=== PATIENT | female | born 1985 | race Caucasian/White ===

== ENCOUNTER 2023-05-26 08:16 | Emergency (ER) | payer MEDICAID, SELFPAY ==
[2023-05-26 08:22] VITALS: BP 121/83; PULSE 105; RESP 22; TEMP 36.3; O2SAT 97; BMI 28.3
[2023-05-26] MEDS: IPRAT-ALBUT 0.5-2.5 MG/3 ML NEB 1 NEB IH (08:25)
--- NOTE | 2023-05-26 08:57 | CRLHL7_ITS ---
For Patients: As a result of the Century Cures Act, medical imaging exams and procedure reports are released immediately into your electronic medical record. You may view this report before your referring provider. If you have questions, please contact your health care provider. INDICATION: Acute asthma attack. Dyspnea COMPARISON: None TECHNIQUE: PA and lateral views of the chest were acquired FINDINGS: TUBES AND LINES: None. HEART AND MEDIASTINUM: The heart size is normal. The mediastinal contour appears normal for patient age. LUNGS AND PLEURAL SPACES: The lungs appear normal.The pleural spaces are unremarkable. OSSEOUS STRUCTURES: Age-appropriate appearance. No acute focal finding. IMPRESSION: No evidence of active pulmonary disease. Dictated by Rick Link MD @ 05/26/2023 9:44:26 AM (Electronically Signed)
--- NOTE | 2023-05-26 08:58 | ED_ITS ---
HPI - General Adult General Chief complaint: Asthma Stated complaint: asthma attack/out of control Time Seen by Provider: 05/26/23 08:43 Source: patient Mode of arrival: ambulatory Limitations: no limitations History of Present Illness HPI narrative: 38-year-old female presenting with an asthma exacerbation. Patient has long history of controlled asthma, has a rescue inhaler and albuterol nebs at home which she takes as needed. She is also on daily Flovent. In last 24 hours she has been taking multiple doses of her medications. She feels short of breath and has a cough. She denies fevers or chills. Appetite has been normal. She has been cleaning a lot around her house recently, she denies any recent travel. She states that she has never had an asthma exacerbation this bad before. Upon arrival to the ER patient had a DuoNeb done immediately and she does feel significantly better. Related Data Home Medications Medication Instructions Recorded Confirmed albuterol 90 mcg/actuation aerosol mcg inhalation 05/26/23 inhaler fluticasone propionate 250 1 inh inhalation BID 05/26/23 05/26/23 mcg/actuation blister powder for inhalation (Flovent Diskus) venlafaxine 75 mg capsule,extended 75 mg PO DAILY 05/26/23 05/26/23 release 24 hr Previous Rx's Medication Instructions Recorded ipratropium 0.5 mg-albuterol 3 mg 3 ml inhalation Q6H PRN #90 mL 05/26/23 (2.5 mg base)/3 mL nebulization soln prednisone 20 mg tablet 20 mg PO DIRECTED 9 days #18 05/26/23 tabs Allergies Allergy/AdvReac Type Severity Reaction Status Date / Time oxycodone Allergy Verified 05/26/23 08:34 Review of Systems Status of ROS: Reports: 10 or more systems reviewed and unremarkable except as noted in History and below PFSH PFS Social History Smoking Status: Never smoker Do you use any of these nicotine containing products: None Second hand tobacco smoke exposure: No How often do you have a drink containing alcohol: never How often do you have six or more drinks on one occasion: Never AUDIT-C Alcohol total score: 0 Non-prescribed substance use: denies use service: No Exam Narrative: Exam Narrative: Well-nourished well-developed patient in no acute distress. Alert and oriented. Answers questions appropriately. Mood and affect are appropriate. Thoughts are goal oriented and rational. No tangential or magical thinking noted. Patient speaks in full sentences without needing to catch her breath. She has acne on the lower face and neck. HEENT: Normocephalic atraumatic. Pupils are equally round reactive to light. Extraocular muscles are intact. Conjunctivae are moist without any icterus noted. Moist mucous membranes. Posterior pharynx is normal. Neck is soft. Cardiovascular: Heart is regular rate and rhythm S1 and S2 are present without any murmurs. Lungs: Diffuse but mild wheezing bilaterally. Extremities: Bilateral lower extremities are without edema. Skin: Well perfused without any obvious rashes. Const: Vital Signs, click to edit/add: Vital Signs - 24 hr 05/26/23 08:22 05/26/23 09:41 Temperature 97.4 F L 98 F Pulse Rate [Pulse Oximeter] 105 H 83 Respiratory Rate 22 18 Blood Pressure [Le ft Upper Arm] 121/83 Blood Pressure [Ri ght Upper Arm] 110/72 Pulse Oximetry 97 97 Oxygen Delivery Me thod Room Air Room Air Course Course Hospital Course: After patient was stabilized with a DuoNeb, she received oral prednisone. Chest x-ray, read by me, does not show any acute infiltrates. Lab work was unremarkable. Triple swab was negative. Vital Signs Vital signs: Initial Vital Signs Temperature 97.4 F L 05/26/23 08:22 Temperature Source Temporal Artery Scan 05/26/23 08:22 Pulse Rate 105 H 05/26/23 08:22 Pulse Rhythm Regular 05/26/23 08:22 Respiratory Rate 22 05/26/23 08:22 Blood Pressure 121/83 05/26/23 08:22 Blood Pressure Mean 95 05/26/23 08:22 Blood Pressure Position Sitting 05/26/23 08:22 Pulse Oximetry 97 05/26/23 08:22 Oxygen Delivery Method Room Air 05/26/23 08:22 Vital Signs Temperature 97.4 F L 05/26/23 08:22 Pulse Rate 105 H 05/26/23 08:22 Respiratory Rate 22 05/26/23 08:22 Blood Pressure 121/83 05/26/23 08:22 Pulse Oximetry 97 05/26/23 08:22 Oxygen Delivery Method Room Air 05/26/23 08:22 Temperature 98 F 05/26/23 09:41 Pulse Rate 83 05/26/23 09:41 Respiratory Rate 18 05/26/23 09:41 Blood Pressure 110/72 05/26/23 09:41 Pulse Oximetry 97 05/26/23 09:41 Oxygen Delivery Method Room Air 05/26/23 09:41 Medical Decision Making MDM Narrative Medical decision making narrative: 38-year-old female with asthma exacerbation. Patient will be sent home with prednisone and DuoNebs. Follow-up as needed. Recommend a re-examination in 1 week with her primary care provider. Lab Data Lab results reviewed: Yes I reviewed the patient's lab results Labs: Lab Results 05/26/23 05/26/23 Range/Units 09:05 09:07 WBC 7.73 (4.50-11.00) K/uL RBC 4.40 (4.00-5.20) m/uL Hgb 12.9 (12.0-16.0) gm/dL Hct 38.9 (33.0-51.0) % MCV 88 (80-100) fL MCH 29 (26-34) pg MCHC 33 (32-36) gm/dL RDW Coeff of Jessa 13.0 (11.5-15.5) % Plt Count 242 (140-440) K/uL Neut % (Auto) 65.2 (42.0-72.0) % Lymph % (Auto) 19.7 L (20-44) % [place] % (Auto) 4.8 (0.0-11.0) % Eos % (Auto) 9.3 H (0.0-7.0) % Baso % (Auto) 0.9 (0.0-3.0) % Neut # (Auto) 5.04 (1.7-7.0) K/uL Lymph # (Auto) 1.50 (0.90-2.90) K/uL [place] # (Auto) 0.40 (0.00-0.90) K/UL Eos # (Auto) 0.70 H (0.00-0.50) K/uL Baso # (Auto) 0.07 (0.00-0.30) K/uL Abs Immat Gran (auto) 0.01 (0.00-0.30) K/uL Imm/Tot Granulo (auto) 0.1 % Sodium 140 (135-149) mmol/L Potassium 3.9 (3.6-5.1) mmol/L Chloride 108 (96-114) mmol/L Carbon Dioxide 23 (20-32) mmol/L BUN 12 (5-24) mg/dL Creatinine 0.7 (0.5-1.5) mg/dL Estimated Creat Clear 91.02 Estimated GFR 114 ml/min Glucose 103 (60-115) mg/dL Calcium 8.8 (8.4-10.6) mg/dL C-Reactive Protein < 0.5 L (0.5-1.0) mg/dL SARS-CoV-2 (PCR) Negative SARS-CoV-2 (Negative) Influenza Type A (PCR) Negative PCR FLU A (Negative) Influenza Type B (PCR) Negative PCR FLU B (Negative) RSV (PCR) Negative PCR RSV (Negative) Imaging Data Chest x-ray: Attestation: I have reviewed the pertinent imaging results. Radiologist's impression: PA and lateral views of the chest were acquired FINDINGS: TUBES AND LINES: None. HEART AND MEDIASTINUM: The heart size is normal. The mediastinal contour appears normal for patient age. LUNGS AND PLEURAL SPACES: The lungs appear normal.The pleural spaces are unremarkable. OSSEOUS STRUCTURES: Age-appropriate appearance. No acute focal finding. IMPRESSION: No evidence of active pulmonary disease. Discharge Plan Discharge Clinical Impression: Asthma with acute exacerbation Patient Disposition: Home, Self-Care Condition: Improved Additional Instructions: Take all steroid as prescribed. Okay to use DuoNebs up to 4 times a day as needed. Follow-up with your primary care provider in about 1 week for a recheck. Return to the ER if symptoms worsen. Prescriptions: New prednisone 20 mg tablet 20 mg PO DIRECTED 9 Days Qty: 18 0RF Rx Instructions: 60 mg p.o. daily for 3 days (3 tablets daily on day 1-3), 40 mg daily for 3 days (2 tablets daily on days 4-6), 20 mg daily for 3 days (1 tablet daily on days 7-9). ipratropium-albuterol 0.5 mg-3 mg(2.5 mg base)/3 mL solution for nebulization 3 ml inhalation Q6H PRNQty: 90 0RF No Action albuterol 90 mcg/actuation aerosol inhalation Flovent Diskus 250 mcg/actuation blister with device 1 inh inhalation BID venlafaxine 75 mg capsule,extended release 24hr 75 mg PO DAILY Stand Alone Forms: [employer] Info Instructions
[2023-05-26] MEDS: predniSONE 10 MG TABLET 50 MG PO (09:07)
[2023-05-26 09:12] LABS: Basophils Absolute Auto 0.07 K/uL (0.00-0.30); Basophils Percent Auto 0.9 % (0.0-3.0); Eosinophils Percent Auto 9.3 % (0.0-7.0); Hematocrit 38.9 % (33.0-51.0); Hemoglobin* 12.9 gm/dL (12.0-16.0); Immature Granulocytes Abs Auto 0.01 K/uL (0.00-0.30); Immature Granulocytes Pct Auto 0.1 %; Lymphocytes Percent Auto 19.7 % (20-44); Mean Corpuscular HGB Conc 33 gm/dL (32-36); Mean Corpuscular Hemoglobin 29 pg (26-34); Mean Corpuscular Volume 88 fL (80-100); Monocytes Percent Auto 4.8 % (0.0-11.0); Neutrophils Absolute Auto 5.04 K/uL (1.7-7.0); Neutrophils Percent Auto 65.2 % (42.0-72.0); Platelet Count* 242 K/uL (140-440); White Blood Count* 7.73 K/uL (4.50-11.00)
[2023-05-26 09:16] LABS: Slide Review Reflex No
[2023-05-26 09:24] LABS: Chloride* 108 mmol/L (96-114)
[2023-05-26 09:25] LABS: Potassium* 3.9 mmol/L (3.6-5.1); Sodium* 140 mmol/L (135-149)
[2023-05-26 09:27] LABS: Creatinine* 0.7 mg/dL (0.5-1.5); Est. Creatinine Clearance* 91.02; Estimated Glomerular Filt Rate 114 ml/min
[2023-05-26 09:28] LABS: Blood Urea Nitrogen* 12 mg/dL (5-24); Calcium* 8.8 mg/dL (8.4-10.6); Carbon Dioxide* 23 mmol/L (20-32); Glucose* 103 mg/dL (60-115)
[2023-05-26 09:32] LABS: C Reactive Protein* < 0.5 mg/dL (0.5-1.0)
[2023-05-26 09:41] VITALS: BP 110/72; PULSE 83; RESP 18; TEMP 36.6; O2SAT 97
[2023-05-26 09:50] LABS: PCR FLU A Negative PCR FLU A (Negative); PCR FLU B Negative PCR FLU B (Negative); PCR RSV Negative PCR RSV (Negative)
[2023-05-26 10:07] LABS: SARS PCR* Negative SARS-CoV-2 (Negative)
== END 2023-05-26 10:31 | disposition home or self-care (01) ==
PROVIDERS: Emergency Provider Family Medicine
DX: J45.901 Unspecified asthma with (acute) exacerbation (principal)
CPT/HCPCS: 36415; 71046; 80048; 85025; 86140; 87631; 94640; 99284; J7512

== ENCOUNTER 2023-08-03 19:37 | Emergency (ER) | payer MEDICAID, SELFPAY ==
[2023-08-03 19:42] VITALS: BP 130/82; PULSE 100; RESP 24; TEMP 36.5; O2SAT 92
--- NOTE | 2023-08-03 19:48 | ED.SOB ---
HPI - SOB/Dyspnea General Time Seen by Provider: 19:48 Date Seen: 08/03/23 Chief Complaint: Shortness of Breath/Dyspnea Stated Complaint: asthma Time Seen by Provider: 08/03/23 19:42 Source: patient, RN notes reviewed and old records reviewed Mode of arrival: ambulatory Limitations: no limitations History of Present Illness HPI Narrative: This 38-year-old female with underlying asthma is coming in with asthma exacerbation. She was cleaning her house. She had an exacerbation over the summer with similar circumstances, she was using cleaning products than. Her daughter's use similar cleaning products near bathroom by her today. She has had a history of dust bothering her but has never been this bad. She has not seen an machine stone polisher her asthma specialist and quite some time. She has used about 4 DuoNebs today, has tried her rescue inhaler multiple times. She feels chest tightness, is coughing. She is still on her Flovent. She has not been sick with anything, no underlying cough or cold symptoms, no sore throat, no nasal drainage. Coughing did not start until she was cleaning. Certainly no fevers. MD elicited complaint: shortness of breath, cough and asthma attack Related Data Home Medications Medication Instructions Recorded Confirmed albuterol 90 mcg/actuation aerosol mcg inhalation 05/26/23 inhaler fluticasone propionate 250 1 inh inhalation BID 05/26/23 05/26/23 mcg/actuation blister powder for inhalation (Flovent Diskus) venlafaxine 75 mg capsule,extended 75 mg PO DAILY 05/26/23 05/26/23 release 24 hr Previous Rx's Medication Instructions Recorded ipratropium 0.5 mg-albuterol 3 mg 3 ml inhalation Q6H PRN #90 mL 05/26/23 (2.5 mg base)/3 mL nebulization soln prednisone 20 mg tablet 20 mg PO DIRECTED 9 days #18 05/26/23 tabs Allergies Allergy/AdvReac Type Severity Reaction Status Date / Time oxycodone Allergy Verified 05/26/23 08:34 Review of Systems Status of ROS: Reports: 6 or more systems reviewed and unremarkable except as noted in History and below PFSH PFSH Social History Smoking Status: Never smoker Do you use any of these nicotine containing products: None Second hand tobacco smoke exposure: No How often do you have a drink containing alcohol: never How often do you have six or more drinks on one occasion: Never AUDIT-C Alcohol total score: 0 Non-prescribed substance use: denies use service: No Exam Const: Vital Signs, click to edit/add: Vital Signs - 24 hr 08/03/23 19:42 08/03/23 20:28 Temperature 97.7 F Pulse Rate [Left P ulse Oximeter] 100 98 Respiratory Rate 24 20 Blood Pressure [Ri ght Upper Arm] 130/82 117/78 Pulse Oximetry 92 97 Oxygen Delivery Me thod Room Air Room Air 38-year-old female is alert, interactive, no apparent distress but does look mildly anxious. Pupils equal round reactive, sclera clear. Able to speak in complete sentences but does have dry little cough that is happening few times during our interaction. Neck is supple, no cervical adenopathy, no thyromegaly masses or nodules. Lungs with distant breath sounds, she is somewhat splinting and not wanting to take a deep breath. She does have prolonged expiratory phase an overall diminished lung sounds. Did hear occasional end-expiratory wheeze. CV regular rate and rhythm, no murmur, normal S1 and S2. Documenting provider has reviewed patient's vital signs: yes Course Course ED Course: We will get this patient 40 mg oral prednisone. Will have her do a albuterol nebulization at this time. Monitor on pulse oximetry. Do not feel that chest x-ray or laboratory evaluation is indicated. This sounds like it is in exacerbate aunt to cleaning product or something while she was cleaning today. Have already reviewed with her that I do think she should be referred to an asthma machine stone polisher specialist again for her asthma. Reevaluation(s) Time of Reevaluation #1: 20:38 Reevaluation #1: Patient is feeling better, oxygen saturations 98-100% now, air moving much better in lungs, significantly improved air exchange. She doesn't have any albuterol nebs at home. Reviewed that it will take about 4-6 hours for the prednisone to start working. Will get albuterol nebs and prednisone for her from [facility]. Vital Signs Vital signs: Initial Vital Signs Temperature 97.7 F 08/03/23 19:42 Temperature Source Temporal Artery Scan 08/03/23 19:42 Pulse Rate 100 10/08/23 19:42 Pulse Rhythm Regular 08/03/23 19:42 Respiratory Rate 24 08/03/23 19:42 Blood Pressure 130/82 08/03/23 19:42 Blood Pressure Mean 98 08/03/23 19:42 Blood Pressure Position Sitting 08/03/23 19:42 Pulse Oximetry 92 08/03/23 19:42 Oxygen Delivery Method Room Air 08/03/23 19:42 Vital Signs Temperature 97.7 F 08/03/23 19:42 Pulse Rate 100 08/03/23 19:42 Respiratory Rate 24 08/03/23 19:42 Blood Pressure 130/82 08/03/23 19:42 Pulse Oximetry 92 08/03/23 19:42 Oxygen Delivery Method Room Air 08/03/23 19:42 Temperature 97.7 F 08/03/23 19:42 Pulse Rate 98 08/03/23 20:28 Respiratory Rate 20 08/03/23 20:28 Blood Pressure 117/78 08/03/23 20:28 Pulse Oximetry 97 08/03/23 20:28 Oxygen Delivery Method Room Air 08/03/23 20:28 Critical Care Time Critical Care Time Critical Care Time: No Discharge Plan Discharge Clinical Impression: Asthma with acute exacerbation Patient Disposition: Home, Self-Care Condition: Stable Instructions: Asthma (ED) Additional Instructions: Use albuterol nebs every 4 hours as needed, duonebs are to be only up to 4x/day. Take prednisone as prescribed, next dose due tomorrow morning, recommend taking this with food. If you are worsening despite these measures, have further concerns with your breathing, please seek re-evaluation. Consider talking to your primary provider about referral to asthma/hearing aid specialist. Activity Level: Activity as Tolerated Prescriptions: No Action albuterol 90 mcg/actuation aerosol inhalation Flovent Diskus 250 mcg/actuation blister with device 1 inh inhalation BID venlafaxine 75 mg capsule,extended release 24hr 75 mg PO DAILY prednisone 20 mg tablet 20 mg PO DIRECTED 9 Days Qty: 18 0RF Rx Instructions: 60 mg p.o. daily for 3 days (3 tablets daily on day 1-3), 40 mg daily for 3 days (2 tablets daily on days 4-6), 20 mg daily for 3 days (1 tablet daily on days 7-9). ipratropium-albuterol 0.5 mg-3 mg(2.5 mg base)/3 mL solution for nebulization 3 ml inhalation Q6H PRNQty: 90 0RF Follow Up/Referrals: Provider,Not a Local [Referring] - Stand Alone Forms: [employer] Info Instructions
[2023-08-03] MEDS: predniSONE 20 MG TABLET 40 MG PO (19:58)
[2023-08-03] MEDS: ALBUTEROL SULFATE 2.5 MG/3 ML VIAL.NEB NEB (19:58)
[2023-08-03 20:28] VITALS: BP 117/78; PULSE 98; RESP 20; O2SAT 97
--- NOTE | 2023-08-03 20:55 | PC.NURSE ---
patient DC with spouse, RR even and unlabored. no further questions about DC instructions
== END 2023-08-03 20:55 | disposition home or self-care (01) ==
PROVIDERS: Emergency Provider Family Medicine; PCP Family Medicine
DX: J45.901 Unspecified asthma with (acute) exacerbation (principal)
CPT/HCPCS: 94640; 99283; 99284; J7512

== ENCOUNTER 2025-10-08 20:13 | Emergency (ER) | payer MEDICAID, SELFPAY ==
--- OUTSIDE RECORDS SUMMARY | 2025-10-08 20:15 | XMS_ITS | Clinical Summary ---
Author Organization [facility] Address [address] [facility] [place] [address] Care Team Providers Care Utility Engineer Name Role Phone Wicho Deluna PA-C Primary Care Provider [phone] Source Comments You are receiving this document as you are listed as the primary care provider,follow-up provider, or the patient has been referred to you for consultation.This is in compliance with the Medicare andMedicaid EHR Incentive Program,which states Providers who transition their patient to another setting of careor provider of care or refers their patient to another provider of care shouldprovide summary care record for each transition of care or referral. [employer] Allergies Active AllergyReactionsCriticalityNoted CdaxZttpwxorGwtssktskHjqtQqn31/28/2017 Medications MedicationSigDispense QuantityRefillsLast FilledStart DateEnd DateStatus FLUoxetine (PROZAC) 40 MG capsule Take 1 Cap by mouth daily. 90 Cap Active ibuprofen (MOTRIN) 800 MG tablet Take 1 Tab by mouth every 6 hours as needed for Pain. Taking OTC every 6 hours 05/08/2018Active HYDROcodone-acetaminophen (NORCO) 5-325 MG tablet Indications:Piriformis syndrome of right sideTake 1-2 Tabs by mouth every 4 hours as needed for Pain. 10 Tab 05/08/2018Active Additional Information Patient not taking.Reported on 05/11/2018 predniSONE (DELTASONE) 20 MG tablet Indications:Piriformis syndrome of right sideTake one tablet orally twice a day for the next 5 days. 10 Tablet 05/13/2018Active Additional Information Patient not taking.Reported on 01/05/2024 diclofenac (VOLTAREN) 1 % gel Indications:SI (sacroiliac) joint dysfunction (HRC),Greater trochanteric bursitis of right hipAPPLY TOPICALLY TO RIGHT LATERAL HIP 2 TIMES PER DAY. 100 g Active buPROPion (WELLBUTRIN XL) 300 MG 24 hour release tablet Take 1 Tablet (300 mg) by mouth.01/01/2024ctive buPROPion (WELLBUTRIN XL) 150 MG 24 hour release tablet Take 1 Tablet (150 mg) by mouth every morning.12/11/2023ctive ARNUITY ELLIPTA 200 MCG/ACT inhaler Inhale 1 Puff daily.Active Phentermine HCl 37.5 MG capsule Take 1 Capsule (37.5 mg) by mouth.12/11/2023ctive Active Problems ProblemNoted DateDiagnosed DateModerate persistent pguqkp5801/05/2024nxiety and vcrowldulj86/13/3013Xedzrtzyyujrood82/12/8740Pketoif12/03/2011 Social History Tobacco UseTypesPacks/DayYears UsedDateSmoking Tobacco: NeverSmokeless Tobacco: NeverAlcohol UseStandard Drinks/WeekCommentsYes0 (1 standard drink = 0.6 oz pure alcohol)occasionalCommentsNoSex and Gender InformationValueDate Recorded Sex Assigned at BirthNot on fileLegal FcpSepfze50/10/2012 4:46 AM CDTGender IdentityNot on fileSexual OrientationNot on file Last Filed Vital Signs Vital SignReadingTime TakenCommentsBlood Syorzzgs776/6403 9:42 AM CDT Khzlw726401/05/2024 9:42 AM PQYVrfslvezguf83.4 ??C (99.3 ??F)01/05/2024 9:42 AM CDTRespiratory Apup917801/05/2024 9:42 AM CDTOxygen Knzdacrewe78%01/05/2024 9:42 AM CDTInhaled Oxygen Concentration--Zbkyea12.7 kg (158 lb)05/08/2018 12:20 PM TGNLbvjlx171.3 cm (5' 3.5)05/08/2018 12:20 PM CDTBody Mass Index27.55005/08/2018 12:20 PM CDT Plan of Treatment Health MaintenanceDue DateLast DoneCommentsCervical Cancer Screening Due 1986Hep C Screening (Preventive Services)1986Asthma ACT (score of 20 or higher)1990HIV Screening (Preventive Services)2002Adult Preventive Visit2004HepB Vaccine (1)2005Pneumococcal Vaccine (1 of 2 - PCV)2005COVID-19 Vaccine (1 - season)2025Influenza Vaccine (#1), 07/12/2016, 07/03/2012, Additional history exists DTaP/Tdap/Td Vaccine (10 - Tdap), 10/30/2016, 01/11/2015, Additional history existsZoster/Shingles Vaccine (1 of 2)2036IPV (Polio) TxlqxbsYuchgfxro42/11/1991, 10/31/1987, 1986, Additional history exists MCV4 BrqdaknLxdbqhtgh36/19/2005, 05/14/2005HPV Vaccine (No Doses Required) CompletedHepA VaccineAged OutNo longer eligible based on patient's age to complete this topicHib VaccineAged OutNo longer eligible based on patient's age to complete this topicMeningococcal B VaccineAged OutNo longer eligible based on patient's age to complete this topic Insurance * Guarantor: Jaelyn Cam TypeRelation to PatientDate of BirthPhone Billing AddressPersonal/YftqxtLhgu1985 [address] [place] [address] * Guarantor: Gary Barajas TypeRelation to PatientDate of BirthPhone Billing AddressPersonal/GayvaaMrtit32/01/1958 [address] [address] Care Teams Team MemberRelationshipSpecialtyStart DateEnd Date Wicho Deluna PA-C [address] [address] PCP - GeneralPhysician Assistant05/13/18
--- OUTSIDE RECORDS SUMMARY | 2025-10-08 20:16 | XMS_ITS | Encounter Summary ---
Author Organization [facility] Address [address] [place] [address]. [place] [address] Care Team Providers Care Can Top Setter Name Role Phone Eliazar Newman MD Unavailable Ira Loza PA-C Unavailable Slime Hernandez MD Unavailable Chandu Dean MD Unavailable Eliazar Newman MD Primary Care Provider Joann Seaman APRN KITCHEN STEWARD/STEWARDESS Unavailable Un available Chandu Dean MD Unavailable Chandu Dean MD Unavailable Encounter Details DateTypeDepartmentCare Team (Latest Contact Info)Jyjymraxbhg65/02/2025[facility] [place] Advice [facility] [place] [address] [facility] [address] [place] [address] Chandu Dean MD [address] [facility] [address] [place] [address] Moderate persistent asthma with acute exacerbation (Primary Dx) Social History Tobacco UseTypesPacks/DayYears UsedDateSmoking Tobacco: NeverPassive Smoke Exposure: NeverSmokeless Tobacco: NeverAlcohol UseStandard Drinks/WeekComments Yes0 (1 standard drink = 0.6 oz pure alcohol)PHQ-2AnswerDate RecordedPHQ-2 Score Edinburgh Depression ScaleAnswerDate RecordedEdinburgh Depression Scale Auxjp826Last EPDS Self Harm ResultNot on file 08/12/2019Adolescent EducationAnswerDate RecordedGetting School Help NeededNot on file07/18/2023Food InsecurityAnswerDate RecordedWithin the past 12 months, did you worry that your food would run out before you got money to buy more?No 11/03/2023Within the past 12 months, did the food you bought just not last and you didn???t have money to getmore?No11/03/2023Housing StabilityAnswerDate RecordedDo you have housing? (Housing is defined as stable permanent housing and does not include staying outside in a car, in a tent, in an abandoned building, in an overnight halfway, or couch-surfing.)Yes11/03/2023re you worried about losing your housing?Yes11/03/2023Financial Resource StrainAnswerDate Recorded Within the past 12 months, have you or your family members you live with been unable to get utilities (heat, electricity) when it was really needed?No 11/03/2023Transportation NeedsAnswerDate RecordedWithin the past 12 months, has lack of transportation kept you from medical appointments, getting your medicines, non-medical meetings or appointments, work, or from getting things that you need?No11/03/2023Interpersonal SafetyAnswerDate RecordedDo you feel physically and emotionally safe where you currently live?Yes11/04/2023Within the past 12 months, have you been hit, slapped, kicked or otherwise physically hurt by someone?No11/04/2023Within the past 12 months, have you been humiliated or emotionally abused in other ways by your partner or ex-partner?No11/04/2023 CommentsNoSex and Gender InformationValueDate RecordedSex Assigned at UmgtuAivqfp86/15/2021 9:50 AM CDTLegal EhcUonpyv31/04/2012 3:42 AM CSTGender YjbqfebnNoekvs34/15/2021 9:50 AM CDTSexual ApycpioqlpcNbomxkqs47/15/2021 9:51 AM CDTOccupationIndustryJob Start DateJob End Datecrossat[facility] coachNot on fileNot on fileNot on filedocumented as of this encounter Plan of Treatment Not on file documented as of this encounter Visit Diagnoses Diagnosis Moderate persistent asthma with acute exacerbation- Primary documented in this encounter Additional Health Concerns AssessmentNoted TimePHQ-9 Depression Total Score: 10:25 AM CDT documented as of this encounter Care Teams Team MemberRelationshipSpecialtyStart [place] [address] [place] [address] PCP - GeneralFamily Medicine12/11/23 [place] [address] [place] [address] Assigned PCP01/15/21 Ira Loza PA-C [address] [place] [address] Referring PhysicianFamily Jlwpxzqr31/14/21 Slime Hernandez MD [address] [facility] [address] [place] [address] Endocrinology, Diabetes, and Yhfxphlzol44/14/21 Chandu Dean MD [address] [facility] [address] [place], [place] [id number] MDAllergy & Immunology11/24/23 Joann Seaman APRN KITCHEN STEWARD/STEWARDESS Referring PhysicianFamily Medicine03/11/24 Chandu Dean MD [address] [place] [id number] Assigned Allergy Provider01/16/25 Chandu Dean MD [address] [place] [id number] MDAllergy & Rpemjcnliy68/8/25documented as of this encounter
--- OUTSIDE RECORDS SUMMARY | 2025-10-08 20:16 | XMS_ITS | Encounter Summary ---
Author Organization [facility] Address [address] [place] [address]. [place] [address] Care Team Providers Care Acidity Tester Name Role Phone Eliazar Newman MD Unavailable Ira Loza PA-C Unavailable Slime Hernandez MD Unavailable Chandu Dean MD Unavailable Eliazar Newman MD Primary Care Provider Joann Seaman APRN SNIPPER Unavailable Un available Chandu Dean MD Unavailable Chandu Dean MD Unavailable Encounter Details DateTypeDepartmentCare Team (Latest Contact Info)Ebvtxhhfkkv09/06/2025[facility] [place] Medical Advice [facility] [address] [place] [address] Venessa Grimes, RN Social History Tobacco UseTypesPacks/DayYears UsedDateSmoking Tobacco: NeverPassive Smoke Exposure: NeverSmokeless Tobacco: NeverAlcohol UseStandard Drinks/WeekComments Yes0 (1 standard drink = 0.6 oz pure alcohol)PHQ-2AnswerDate RecordedPHQ-2 Score Edinburgh Depression ScaleAnswerDate RecordedEdinburgh Depression Scale Rdubm946Last EPDS Self Harm ResultNot on file 08/12/2019Adolescent [...] in an abandoned building, in an overnight care home, or couch-surfing.)Yes11/03/2023re you worried about losing your [...] CommentsNoSex and Gender InformationValueDate RecordedSex Assigned at UrtfjWbenwj88/15/2021 9:50 AM CDTLegal LokNxyjne79/04/2012 3:42 AM CSTGender BumuijleYchsuq98/15/2021 9:50 AM CDTSexual ZunuwobdauvAcufccuy24/15/2021 9:51 AM 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 on fileNot on fileNot on filedocumented as of this encounter Plan of Treatment Not on file documented as of this encounter Visit Diagnoses Not on filedocumented in this encounter Additional Health Concerns AssessmentNoted TimePHQ-9 Depression Total Score: 10:25 AM CDT documented as of this encounter Care Teams Team MemberRelationshipSpecialtyStart [place] [address] [place] [address] PCP - Generalmily Medicine12/11/23 [place] [address] [place] [address] Assigned PCP01/15/21 Ira Loza PA-C [address] [place] [address] Referring PhysicianFamily Eyctpmgz08/14/21 Slime Hernandez MD [address] [place], [place] [address] MDEndocrinology, Diabetes, and Oyuwvzodmt55/14/21 Chandu Dean MD [address] [place] [address] MDAllergy & Immunology11/24/23 Joann Seaman APRN SNIPPER Referring PhysicianFamily Medicine03/11/24 Chandu Dean MD [address] [place] [id number] Assigned Allergy Provider01/16/25 Chandu Dean MD [address] [facility] [address] [place], [place] [address] MDAllergy & Wncnfmcdqz69/8/25documented as of this encounter
--- OUTSIDE RECORDS SUMMARY | 2025-10-08 20:16 | XMS_ITS | Encounter Summary ---
Author Organization [facility] Address [address] [place] [address]. [place] [address] Care Team Providers Care Director Network Development Name Role Phone Eliazar Newman MD Unavailable Ira Loza PA-C Unavailable Slime Hernandez MD Unavailable Chandu Dean MD Unavailable Eliazar Newman MD Primary Care Provider Joann Seaman APRN FORECAST ANALYST Unavailable Un available Chandu Dean MD Unavailable Chandu Dean MD Unavailable Encounter Details DateTypeDepartmentCare Team (Latest Contact Info)Gizrfbtsbkv36/05/2025[facility] [place] Medical Advice [facility] [place] [id number] [facility] [address]th [place] [address] Ofelia Gale Social History Tobacco UseTypesPacks/DayYears UsedDateSmoking Tobacco: NeverPassive Smoke Exposure: NeverSmokeless Tobacco: NeverAlcohol UseStandard Drinks/WeekComments Yes0 (1 standard drink = 0.6 oz pure alcohol)PHQ-2AnswerDate RecordedPHQ-2 Score 009/03/2025Edinburgh Depression ScaleAnswerDate RecordedEdinburgh Depression Scale Rrtrv543Last EPDS Self Harm ResultNot on file 08/12/2019Adolescent [...] in an abandoned building, in an overnight jail, or couch-surfing.)Yes11/03/2023re you worried about losing your [...] CommentsNoSex and Gender InformationValueDate RecordedSex Assigned at LjgcbSzodpz57/15/2021 9:50 AM CDTLegal MifVuzsfp16/04/2012 3:42 AM CSTGender ConxjzwrPilcjx71/15/2021 9:50 AM CDTSexual VubmyfwknvuAxtxtbzn87/15/2021 9:51 AM 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 on fileNot on fileNot on filedocumented as of this encounter Plan of Treatment Not on file documented as of this encounter Visit Diagnoses Not on filedocumented in this encounter Additional Health Concerns AssessmentNoted TimePHQ-9 Depression Total Score: 509 10:25 AM CDT documented as of this encounter Care Teams Team MemberRelationshipSpecialtyStart [place] [address] [place] [address] [facility]12/11/23 [place] [address] [place] [address] Assigned PCP01/15/21 Ira Loza PA-C [address] [place] [address] Referring PhysicianDecatur County Hospitally Bjpgbcuy52/14/21 Slime Hernandez MD [address] [place], [place] [address] MDEndocrinology, Diabetes, and Fmkhqszfwh28/14/21 Chandu Dean MD [address] [place], [place] [address] MDAllergy & Immunology11/24/23 Joann Seaman APRN FORECAST ANALYST Referring PhysicianFamily Medicine03/11/24 Chandu Dean MD [address] [place], [place] [address] Assigned Allergy Provider01/16/25 Chandu Dean MD [address] [facility] [address] [place], [place] [address] MDAllergy & Ektxjfknht58/8/25documented as of this encounter
--- OUTSIDE RECORDS SUMMARY | 2025-10-08 20:16 | XMS_ITS | Clinical Summary ---
Author Organization [facility] Address [address] [place] [address] Care Team Providers Care Senior Sales Manager Name Role Phone Eliazar Newman MD Unavailable Ira Loza PA-C Unavailable Slime Hernandez MD Unavailable Chandu Dean MD Unavailable Eliazar Newman MD Primary Care Provider Joann Seaman APRN WIND PROJECTS SUPERVISOR Unavailable Un available Chandu Dean MD Unavailable Chandu Dean MD Unavailable Allergies Active AllergyReactionsCriticalityNoted SuqqIduczgbxDpbhcfqtlMttmSkm59/28/2017 Medications MedicationSigDispense QuantityRefillsLast FilledStart DateEnd DateStatus Cetirizine HCl (ZYRTEC ALLERGY PO) Active ipratropium - albuterol 0.5 mg/2.5 mg/3 mL (DUONEB) 0.5-2.5 (3) MG/3ML neb solution Indications:Moderate persistent asthma with acute exacerbationTAKE 1 VIAL BY NEBULIZATION EVERY 6 HOURS NEEDED FOR SHORTNESS OF BREATH, WHEEZING OR COUGH 90 mL 4Active albuterol (VENTOLIN HFA) 108 (90 Base) MCG/ACT inhaler Indications:Mild persistent asthma without complicationINHALE 1-2 PUFFS INTO THE LUNGS EVERY 6 HOURS NEEDED FOR SHORTNESS OF BREATH OR WHEEZING 18 g 1105Active buPROPion (WELLBUTRIN XL) 300 MG 24 hr tablet Indications:Other fatigueTake 1 tablet (300 mg) by mouth every morning. 90 tablet 3095Active albuterol (PROVENTIL) (2.5 MG/3ML) 0.083% neb solution Indications:Mild intermittent asthma without complicationTake 1 vial (2.5 mg) by nebulization every 6 hours as needed for shortness of breath, wheezing or cough. 90 mL 11095Active fluticasone-vilanterol (BREO ELLIPTA) 200-25 MCG/ACT inhaler Indications:Moderate persistent asthma with acute exacerbationInhale 1 puff into the lungs daily. 1 each 1115Active Active Problems ProblemNoted DateDiagnosed DateVaginal /27/2017Nephrolithiasis 04/07/20129270Ylleywh62/03/2011CARDIOVASCULAR SCREENING; LDL GOAL LESS THAN 160 08/26/2010Moderate persistent asthma Resolved Problems ProblemNoted DateDiagnosed DateResolved DateIndication for care in labor or bcshemyf36Encounter for triage in qsrrvrg0408/03/2019 08/13/2019Preterm laborSupervision of other normal , bylxddssws79Hip pain, right Supervision of low-risk fydaunqzj54Indication for care in labor or dbmxvjhr91Encounter for supervision of normal kqirpiwzh07Encounter for supervision of other normal Streptococcus B carrier state complicating Active laborVaginal tnqikdas64/13/2015 12/14/2015Preterm aiedjauuuvls67/Low-lying zymmlfaj02/05/2014 10/31/2014History of macrosomia in infant in prior , currently Encounter for supervision of other normal Overview (08/28/2015): Diagnosis updated by automated process. Provider to review and confirm. Active laborLabor and delivery, indication for care reech diqarwhensux89/24/Pyelonephritis Vaginal cyst04/17/Urethra, diverticulum 04/15/Right flank pain Overview (04/22/2012): R ureteral stent History of depression, currently eqdoqbbp77History of macrosomia in infant in prior , currently /27/2012 09/25/2012Encounter for supervision of other normal zytitztlu28/27/2012 09/25/2012 Overview (08/28/2015): Diagnosis updated by automated process. Provider to review and confirm. Rrjmttawpdx76Streptococcus infection in conditions classified elsewhere and of unspecified site, group B1 Overview (08/07/2010): vaginal Placenta hudmdf81 Overview (04/20/2010): Low-lying Anorvcwh33 Overview (07/28/2015): Problem list name updated by automated process. Provider to review Supervision of normal first yhxdpbydl49Dysmenorrhea01/05/2007 02/12/2010Excessive or frequent exidongkqvxw45 Encounters DateTypeDepartmentCare WeuzDaownichnkq53/06/2025[facility] Medical Advice [place] [address] [place] [phone] Venessa Grimes RN 08/31/2025[facility] Medical Advice [facility] [address] 4[address] [place] [phone] [facility] 08/29/2025Telephone [place] [address] [place] [phone] Chandu Dean MD Prior Auth - Medication (fluticasone-vilanterol (BREO ELLIPTA) 200-25 MCG/ACT inhaler- APPROVED)08/28/2025[facility] Medical Advice [place] [address] [place] [phone] Chandu Dean MD Moderate persistent asthma with acute exacerbation (Primary Dx)08/05/2025 7:00 AM CDTOffice Visit [place] [address] [address] [place] [phone] Chandu Dean MD Seasonal allergic rhinitis due to pollen (Primary Dx); Moderate persistent asthma without complication; Moderate persistent asthma with acute blldginuazdl30/09/5792Hqykce08/06/2025 Refill [place] [address] [address] [phone] Chandu Dean MD Refill Request (fluticasone-vilanterol (BREO ELLIPTA) 200-25 MCG/ACT inhaler) from Last 3 Months Immunizations ImmunizationAdministration DatesNext ErbMyuK9105/11/2002,12/01/2001,05/19/2001 Historical DTP/aP06/28/1996,04/06/1991,10/31/1987,1986,1986Influenza (IIV3) PF07/03/2012,07/23/2010,09/04/1999Influenza (prior to 2023)07/23/2010 Influenza Vaccine >6 months,quad, PF07/13/2019,07/12/2016MMR (MMRII)04/03/1999, 09/05/1987Mantoux Tuberculin Skin Test04/23/2011,04/18/2010Meningococcal ACWY (Menactra??)05/14/2005OPV, trivalent, live04/06/1991,10/31/1987,1986, 1986TD,PF 7+ (Tenivac)04/03/1999TDAP (Adacel,Boostrix)06/01/2019TDAP Vaccine (Adacel)06/01/2019,10/30/2016,01/11/2015,11/05/2010Varicella (Varivax) 09/21/1992 Family History Medical HistoryRelationCommentsDiabetesBrother 3type 1Heart DiseaseMaternal GrandfatherThyroid DiseaseMaternal GrandfatherGynecologyMotherendometriosis Thyroid DiseaseMotherBreast CancerPaternal GrandmotherDiabetesSister 3type 1 RelationStatusCommentsBrother 1AliveBrother 2AliveBrother 3DaughterAliveFather AliveMaternal GrandfatherAliveMaternal GrandmotherAliveMotherAlivePaternal GrandfatherAlivePaternal GrandmotherAliveSister 1AliveSister 2AliveSister 3 Social History Tobacco UseTypesPacks/DayYears UsedDateSmoking Tobacco: NeverPassive Smoke Exposure: NeverSmokeless Tobacco: Never Tobacco Cessation:Counseling Given: Not Answered Alcohol UseStandard Drinks/WeekCommentsYes0 (1 standard drink = 0.6 oz pure alcohol)PHQ-2AnswerDate RecordedPHQ-2 Btvfm205Edinburgh Depression ScaleAnswerDate RecordedEdinburgh Depression Scale Total4 08/12/2019Last EPDS Self Harm ResultNot on file08/12/2019Adolescent Education AnswerDate RecordedGetting School Help NeededNot on file07/18/2023Food InsecurityAnswerDate RecordedWithin the past 12 months, did you worry that your food would run out before you got money to buy more?No11/03/2023Within the past 12 months, did the food you bought just not last and you didn???t have money to getmore?No11/03/2023Housing StabilityAnswerDate RecordedDo you have housing? (Housing is defined as stable permanent housing and does not include staying ou tside in a car, in a tent, in an abandoned building, in an overnight senior care, or couch-surfing.)Yes11/03/2023re you worried about losing your housing?Yes 11/03/2023Financial Resource StrainAnswerDate RecordedWithin the past 12 months, have you or your family members you live with been unable to get utilities (heat, electricity) when it was really needed?No11/03/2023Transportation Needs AnswerDate RecordedWithin the past 12 months, has lack of transportation kept you from medical appointments, getting your medicines, non-medical meetings or appointments, work, or from getting things that you need?No11/03/2023 Interpersonal SafetyAnswerDate RecordedDo you feel physically and emotionally safe where you currently live?Yes11/04/2023Within the past 12 months, have you been hit, slapped, kicked or otherwise physically hurt by someone?No11/04/2023 Within the past 12 months, have you been humiliated or emotionally abused in other ways by your partner or ex-partner?No11/04/2023CommentsNoSex and Gender InformationValueDate RecordedSex Assigned at IypmzQlqxxf84/15/2021 9:50 AM CDTLegal CakWcuiqb99/04/2012 3:42 AM CSTGender BsazwojkQlbbhr14/15/2021 9:50 AM CDTSexual BvygdksnqgyIvvrapsi91/15/2021 9:51 AM 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 on fileNot on fileNot on file Last Filed Vital Signs Vital SignReadingTime TakenCommentsBlood Waayshvi190/7210/07/2025 6:57 AM CDT Uygtw9224 6:57 AM BLZDqeqvsufphx50.5 ??C (97.7 ??F)05/21/2025 9:31 AM CDTRespiratory Icjk197205/21/2025 9:31 AM CDTOxygen Cufnwtwbno60%08/05/2025 6:57 AM CDTInhaled Oxygen Concentration--Ohdugi03.3 kg (183 lb 9.6 oz)08/05/2025 6:57 AM TMBGxohpb648 cm (5' 3)12/11/2023 10:12 AM CSTBody Mass Index32.52012/11/2023 10:12 AM BUTTON SE[employer]ER [employer] Plan of Treatment Health MaintenanceDue DateLast DoneCommentsPNEUMOCOCCAL VACCINE: PEDIATRICS (0 to 5 YEARS) AND AT-RISK PATIENTS (6 to 49 YEARS) (1 of 2 - PCV)2005ASTHMA ACTION PLAN, 04/10/2021, 05/28/2018, Additional history existsYEARLY PREVENTIVE VISIT, 12/10/2018, 12/14/2015, Additional history existsCOVID-19 VACCINE ( season)2025 INFLUENZA VACCINE (#1), 12/10/2018 (Declined), 07/12/2016, Additional history existsASTHMA CONTROL TEST, 06/29/2025, 07/29/2024, Additional history existsADVANCE CARE UJTJPQEX31 ANNUAL REVIEW OF HM ERPLGO70/12/2024, 08/05/2022, 1DIABETES UHDONDUXW42/06/2024, 07/18/2021, 04/10/2021, Additional history exists HPV TEST/06/2024, 12/10/2018PAP, 12/10/2018, 12/14/2015, Additional history existsDTAP/TDAP/TD VACCINE (12 - Td or Tdap) , 06/01/2019, 10/30/2016, Additional history existsZOSTER VACCINE (1 of 2)2036HEPATITIS B VWCPKCNOdrvnsftt26/16/2002, 12/01/2001, 05/19/2001MENINGITIS VACCINEAged Out05/14/2005No longer eligible based on patient's age to complete this topicHIV DIFWIYXZLXbskkfydm87/28/2019, 06/05/2016, 02/28/2016, Additional history existsHEPATITIS C SCREENINGCompleted 1PHQ-2 (once per calendar year)Kkygttsmm17/03/2025, 06/29/2025, 07/29/2024, Additional history existsHPV VACCINE (No Doses Required)Completed Medical Devices ImplantedTypeAreaManufacturerDevice IdentifierShelf Expiration DateModel / Serial / LotStent Ureteral Dbl Pigtail Inlay [id number] Implanted:Qty: 1 on 04/07/2012 [facility] UreterCR [employer]-UXLTYDGL11/01/[id number] / / [id number]:removed 1548 04/07/12Stent Ureteral Dbl Pigtail Inlay [id number] Implanted:Qty: 1 on 04/07/2012 [facility] [employer] INC-PLTZFBFT68/01/[id number] / / [id number]:removed 1606 04/07/2012 JBStent Ureteral Silhouette [id number] Implanted:Qty: 1 on 04/07/2012 [facility]APPLIED MEDICAL [id number] / / [id number]:removed 1612 04/07/2012Stent Ureteral Inlay [id number] Implanted:Qty: 1 on 04/07/2012 [facility]: UreterCR [employer] INC08/27/[id number] / / [id number] Procedures Procedure NamePriorityDate/TimeAssociated DiagnosisCommentsCOMPREHENSIVE METABOLIC VIKKNYgsekdw83/09/2024 2:09 PM [employer] Paresthesia GYNECOLOGIC MMVFXQLMLvjrfhj16/09/2024 2:05 PM [employer] Cervical cancer screening HPV HIGH RISK TYPES DNA ROUCBJIXZhvdafc11/09/2024 2:05 PM [employer] Cervical cancer screening HEPATITIS C SCREEN REFLEX TO HCV RNA QUANT AND SPRVWXWSZtwzndr63/15/2021 10:09 AM CDT Need for hepatitis C screening test HIV ANTIGEN ANTIBODY MJYHTHimpkfq68/28/2019 10:01 AM BUTTON SEWER HAND Supervision of normal ASTHMA ACTION ZQCBFhrydrw89/28/2015 1:52 PM CSTfrom Last 3 Months or Most Recently Relevant to Health Maintenance Results * Comprehensive metabolic panel (11/04/2023 2:09 PM BUTTON SEWER [employer])ComponentValueRef Range Test MethodAnalysis TimePerformed AtPathologist KkblkxwsvQmcwda380020 - 145 mmol/L11/04/2023 10:03 PM CSTUU LABORATORYComment:Reference intervals for this test were updated on 07/22/2023 to more accurately reflect our healthy population. There may be differences in the flagging of prior results with similar values performedwith this method. Interpretation of those prior results can be made in the context of the updated reference intervals. Potassium3.53.4 - 5.3 mmol/L11/04/2023 10:03 PM CSTUU LABORATORYCarbon Dioxide (CO2)2422 - 29 mmol/L11/04/2023 10:03 PM CSTUU LABORATORYAnion Hjg014 - 15 mmol/L11/04/2023 10:03 PM CSTUU LABORATORYUrea Efilwtyr90.76.0 - 20.0 mg/dL 11/04/2023 10:03 PM CSTUU LABORATORYCreatinine0.890.51 - 0.95 mg/dL11/04/2023 10:03 PM CSTUU LABORATORYGFR Cewhtxkl23>60 mL/min/1.82t90011/04/2023 10:03 PM CSTUU LABORATORYCalcium9.48.6 - 10.0 mg/dL11/04/2023 10:03 PM [facility] Sgqpcilr99927 - 107 mmol/L11/04/2023 10:03 PM CSTUU XTGQZSRDJDVgeumrh2808 - 99 mg/dL11/04/2023 10:03 PM CSTUU LABORATORYAlkaline Uqzcvtdqscs9911 - 150 U/L 11/04/2023 10:03 PM CSTUU LABORATORYComment:Reference intervals for this test were updated on 09/09/2023 to more accurately reflect our healthypopulation. There may be differences in the flagging of prior results with similar values performedwith this method. Interpretation of those prior results can be made in the context of the updated reference intervals.VZC357 - 45 U/L11/04/2023 10:03 PM CSTUU LABORATORYComment:Reference intervals for this test were updated on 04/07/2023 to more accurately reflect our healthy population. There may be differences in the flagging of prior results with similar values performed with this method. Interpretation of those prior results can be made in the context of the updated reference intervals.KXE722 - 50 U/L11/04/2023 10:03 PM CSTUU LABORATORYComment:Reference intervals for this test were updated on 04/07/2023 to more accurately reflect our healthy population. There may be differences in the flagging of prior results with similar values performed with this method. Interpretation of those prior results can be made in the context of the updated reference intervals.Protein Total7.16.4 - 8.3 g/dL11/04/2023 10:03 PM CSTUU LABORATORYAlbumin4.33.5 - 5.2 g/dL11/04/2023 10:03 PM CSTUU LABORATORYBilirubin Total0.4<=1.2 mg/dL11/04/2023 10:03 PM BUTTON SEWER HAND UU LABORATORYSpecimen (Source)Anatomical Location / LateralityCollection Method / VolumeCollection TimeReceived TimeBloodBLOOD SPECIMEN / Unknown Venipuncture / Dmqbuuo7911/04/2023 2:09 PM CST11/04/2023 2:11 PM [facility] Narrative Authorizing ProviderResult TypeResult StatusSusan Janessa Seaman APRN CNPLAB - BLOOD ORDERABLESFinal ResultPerforming OrganizationAddressCity/State/ZIP Code Phone Number [facility] [address] [facility], [address] [place] [phone], [facility] [phone] * Pap screen with HPV - recommended age 30 - 65 years (11/04/2023 2:05 PM [employer]) ComponentValueRef RangeTest MethodAnalysis TimePerformed AtPathologist SignatureInterpretationNegative for Intraepithelial Lesion or Malignancy (NILM)11/07/2023 8:33 AM [facility] at 0833 CSTComment Papanicolaou Test Limitations: Cervical cytology is a screening test with limited sensitivity, and regular screening is critical for cancer prevention. Pap tests are primarily effective for the diagnosis/prevention of squamous cell carcinoma, not adenocarcinoma or other cancers. 11/07/2023 8:33 AM [facility]TY LABSSpecimen AdequacySatisfactory for evaluation, endocervical/transformation zone component ykyedoi6111/07/2023 8:33 AM [facility]TY LABSClinical Bnbslbwcxjqsmcg04/12/2024 8:33 AM [facility]ST[facility] SPECIALTY LABSLMP/Menopause Date 8:33 AM [facility] SPECIALTY LABSReflex TestingYes regardless of cmunjd0611/07/2023 8:33 AM [facility] LABSPrevious Abnormal?No11/07/2023 8:33 AM [facility] LABSPerforming LabsThe technical component of this testing was completed at [facility] Bsnvswjyko81/12/2024 8:33 AM [facility] Specimen (Source)Anatomical Location / LateralityCollection Method / Volume Collection TimeReceived TimeBrushingCERVIX UTERI STRUCTURE / UnknownNon-blood Collection / Lsqgcbv6811/04/2023 2:05 PM CST11/04/2023 2:17 PM [facility] Narrative Authorizing ProviderResult TypeResult StatusSusan Janessa Seaman APRN CNPLAB - [place] APFinal ResultPerforming OrganizationAddressCity/State/ZIP CodePhone Number [facility] [address] [facility], [address] [address], [facility] [phone] * HPV High Risk Types DNA Cervical (11/04/2023 2:05 PM [facility] [employer])ComponentValueRef RangeTest MethodAnalysis TimePerformed AtPathologist SignatureOther HR HPV BdigmtcsDfkqbxme91/15/2024 2:13 PM [facility] YFKFALDKPWAZNE92 DNA DjpxprzuPwynzauo61/ 2:13 PM [facility] DJHAALEYTOMOOH66 DNA EokvjwzwMeglkkne15/15/2024 2:13 PM [facility] MOLECULAR DIAGNOSTICSFINAL DIAGNOSIS This patient's sample is negative for HPV DNA. This test was developed and its performance characteristics determined by the [facility], [facility]. It has not been cleared or approved by the FDA.The laboratory is regulated under CLIA as qualified to perform high-complexity testing. This test is used for clinical purposes. It should not be regarded as investigational or for research. METHODOLOGY: The Maria L Santosh 4800 system uses automated extraction, simultaneous amplification of HPV (L1 region) and beta-globin, followed by real time detection of fluorescent labeled HPV and beta globin using specific oligonucleotide probes. The test specifically identifies types HPV 16 DNA and H PV 18 DNA while concurrently detecting the rest of the high risk types (31, 33, 35, 39, 45, 51, 52,56, 58, 59, 66 or 68). COMMENTS: This test is not intended for use as a screening device for woman under age 30 with normal cervical cytology. Results should be correlated with cytologic and histologic findings. Close clinical followup is recommended. 11/10/2023 2:13 PM [facility] MOLECULAR DIAGNOSTICSSpecimen (Source)Anatomical Location / LateralityCollection Method / VolumeCollection TimeReceived Time BrushingCERVIX UTERI STRUCTURE / UnknownNon-blood Collection / Gxvwxuc3911/04/2023 2:05 PM CST11/10/2023 7:47 AM [facility] Narrative Authorizing ProviderResult TypeResult StatusSusan Janessa Seaman APRN CNPLAB - BLOOD ORDERABLESFinal ResultPerforming OrganizationAddressCity/State/ZIP Code Phone Number [facility] [address] [facility], Room [address] [place] [phone], [facility] [phone] * Hepatitis C Screen Reflex to HCV RNA Quant and Genotype (04/10/2021 10:09 AM CDT)ComponentValueRef RangeTest MethodAnalysis TimePerformed AtPathologist SignatureHepatitis C AntibodyNonreactiveNR^Wxlhzktnuhx46/15/2021 9:01 PM CDT [facility] HOS[facility]ITALComment: Assay performance characteristics have not been established for newborns, infants, and children Specimen (Source)Anatomical Location / LateralityCollection Method / Volume Collection TimeReceived HsqmDcajk81/15/2021 10:09 AM CDT04/10/2021 10:14 AM CDT Narrative Authorizing ProviderResult TypeResult StatusEliazar Newman MDLAB - BLOOD ORDERABLES Final ResultPerforming OrganizationAddressCity/State/ZIP CodePhone Number [facility] [address] [place] [address] * HIV Antigen Antibody Combo (12/24/2018 10:01 AM [facility] [employer])ComponentValueRef Range Test MethodAnalysis TimePerformed AtPathologist SignatureHIV Antigen Antibody ComboNonreactiveNR^Jcbqyghuegi11/01/2019 12:14 PM CSTUNHOLY CROSS HOSPITALComment:HIV-1 p24 Ag & HIV-1/HIV-2 Ab Not DetectedSpecimen (Source)Anatomical Location / LateralityCollection Method / VolumeCollection TimeReceived TimeBlood specimen (specimen)12/24/2018 10:01 AM CST12/24/2018 10:02 AM [facility] Narrative Authorizing ProviderResult TypeResult StatusMike West MDLAB - BLOOD ORDERABLESFinal ResultPerforming OrganizationAddressCity/State/ZIP CodePhone Number [address] [phone] from Last 3 Months or Most Recently Relevant to Health Maintenance Insurance * Guarantor: Jaelyn CamAccount TypeRelation to PatientDate of PhoneBiljon michael moore [facility] AddressMedication JgrubokMjzx1985 [address] [place] [address] Advance Directives For more information, please contact: [phone] * Full Code (Latest Code Status on File) Date ActivatedDate InactivatedComments04/07/2012 6:31 PM04/09/2012 7:46 PM Care Teams Team MemberRelationshipSpecialtyStart [place] [address] [place] [address] PCP - GeneralFamily Medicine12/11/23 [place] [address] [place] [address] Assigned PCP01/15/21 Ira Loza PA-C [address] [place] [address] Referring PhysicianFamily Lxtgdmrh84/14/21 Slime Hernandez MD [address] [facility] [address] [place] [address] MDEndocrinology, Diabetes, and Cpnupxvyba65/14/21 Chandu Dean MD [address] [place] [address] MDAllergy & Immunology11/24/23 Joann Seaman APRN WIND PROJECTS SUPERVISOR Referring PhysicianFamily Medicine03/11/24 Chandu Dean MD [address] [facility] [address] [place] [id number] Assigned Allergy Provider01/16/25 Chandu Dean MD [address] [facility] [address] [place] [id number] MDAllergy & Yqvfolgtta14/8/25
--- OUTSIDE RECORDS SUMMARY | 2025-10-08 20:16 | XMS_ITS | Encounter Summary ---
Author Organization [facility] Address [address] [place] [address]. [place] [address] Care Team Providers Care Single Resource Boss Name Role Phone Eliazar Newman MD Unavailable Ira Loza PA-C Unavailable Slime Hernandez MD Unavailable Chandu Dean MD Unavailable Eliazar Newman MD Primary Care Provider Joann Seaman APRN HAT TRIMMER Unavailable Un available Chandu Dean MD Unavailable Chandu Dean MD Unavailable Reason for Visit * ReasonOnset DateCommentsPrior Auth - Yfbenrbcni22/03/2025fluticasone- vilanterol (BREO ELLIPTA) 200-25 MCG/ACT inhaler- APPROVED Encounter Details DateTypeDepartmentCare Team (Latest Contact Info)Fzadugxgfzn68/03/2025Telephone [facility] [place] [address] [facility] [address] [place] [phone] Chandu Dean MD [address] [facility] [address] [place] [address] Prior Auth - Medication (fluticasone-vilanterol (BREO ELLIPTA) 200-25 MCG/ACT inhaler- APPROVED) Social History Tobacco UseTypesPacks/DayYears UsedDateSmoking Tobacco: NeverPassive Smoke Exposure: NeverSmokeless Tobacco: NeverAlcohol UseStandard Drinks/WeekComments Yes0 (1 standard drink = 0.6 oz pure alcohol)PHQ-2AnswerDate RecordedPHQ-2 Score Edinburgh Depression ScaleAnswerDate RecordedEdinburgh Depression Scale [id number] EPDS Self Harm ResultNot on file 08/12/2019Adolescent [...] in an abandoned building, in an overnight skilled nursing, or couch-surfing.)Yes11/03/2023re you worried about losing your [...] CommentsNoSex and Gender InformationValueDate RecordedSex Assigned at NowbfDffobm80/15/2021 9:50 AM CDTLegal NbpVoijjz56/04/2012 3:42 AM CSTGender WnjtiqsbKmnvxt25/15/2021 9:50 AM CDTSexual JnovjavnpbcReuhukjx00/15/2021 9:51 AM 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 on fileNot on fileNot on filedocumented as of this encounter Miscellaneous Notes * Telephone Encounter - Phil David - 08/31/2025 11:38 AM CST Images from the original note were not included. 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 NCE LECTURER * Telephone Encounter - Joann Philnelson Mcallister - 08/30/2025 2:12 PM CST Images from the original note were not included. Central Prior Authorization Team PA Initiation Medication: BREO ELLIPTA 200-25 MCG/ACT IN AEPB Insurance Company: [employer] [facility] Filling [facility] [id number] [place] [address] Filling Pharmacy Filling Pharmacy Start Date: 08/30/2025 NCE LECTURER * Telephone Encounter - Funmi Hill MA - 08/29/2025 10:54 AM CST Prior Authorization Retail Medication Request Medication/Dose: fluticasone-vilanterol (BREO ELLIPTA) 200-25 MCG/ACT inhaler Diagnosis and ICD code (if different than what is on RX): [J45.41] New/renewal/insurance change PA/secondary ins. PA: Previously Tried and Failed: Rationale: Insurance Primary: [facility] Secondary (if applicable): Insurance ID: Pharmacy Information (if different than what is on RX) Name: Phone: Fax: Clinic Information Preferred routing pool for dept communication: cs allergy NCE LECTURER documented in this encounter Plan of Treatment Not on file documented as of this encounter Visit Diagnoses Not on filedocumented in this encounter Additional Health Concerns AssessmentNoted TimePHQ-9 Depression Total Score: 10:25 AM CDT documented as of this encounter Care Teams Team MemberRelationshipSpecialtyStart [place] [address] [place] [address] PCP - GeneralFamily Medicine12/11/23 [place] [address] [place] [address] Assigned PCP01/15/21 Ira Loza PA-C [address] [place] [address] Referring PhysicianFamily Wcxdxwqs57/14/21 Slime Hernandez MD [address] [place] [address] [place] [address] MDEndocrinology, Diabetes, and Vnwlevqxmx31/14/21 Chandu Dean MD [address] [place] [address] [place] [address] MDAllergy & Immunology11/24/23 Joann Seaman APRN HAT TRIMMER Referring PhysicianFamily Medicine03/11/24 Chandu Dean MD [address] [place] [address] [place] [id number] Assigned Allergy Provider01/16/25 Chandu Dean MD [address] [place] [address] [place] [address] MDAllergy & Kvhsuxpivd11/8/25documented as of this encounter
[2025-10-08 20:31] VITALS: BP 132/79; PULSE 126; RESP 24; TEMP 36.8; O2SAT 96; BMI 32.5
--- NOTE | 2025-10-08 20:46 | CRLHL7_ITS ---
For Patients: As a result of the Cures Act, medical imaging exams and procedure reports are released immediately into your electronic medical record. You may view this report before your referring provider. If you have questions, please contact your health care provider. INDICATION: Shortness of breath. TECHNIQUE: Chest 2 views. COMPARISON: 05/26/2023. FINDINGS: Cardiovascular and mediastinum: Cardiomediastinal silhouette is within normal limits. Lungs and pleural spaces: Lungs are clear. No sign of infiltrate or mass. No sign of pleural effusion. No pneumothorax. Bones and soft tissues: No significant findings. IMPRESSION: No acute or significant findings. Dictated by Kris Muniz MD @ 10/08/2025 9:26:30 PM (Electronically Signed)
--- NOTE | 2025-10-08 21:05 | ED.GENADULT ---
HPI - General Adult General Chief complaint: Shortness of Breath/Dyspnea <Chanel Vickers MD - Last Filed: 10/08/25 22:05> Stated complaint: Asthma attack <Chanel Vickers MD - Last Filed: 10/08/25 22:05> Time Seen by Provider: 10/08/25 20:46 <Chanel Vickers MD - Last Filed: 10/08/25 22:05> Source: patient <Chanel Vickers MD - Last Filed: 10/08/25 22:05> Mode of arrival: ambulatory <Chanel Vickers MD - Last Filed: 10/08/25 22:05> Limitations: no limitations <Chanel Vickers MD - Last Filed: 10/08/25 22:05> History of Present Illness HPI narrative: 40-year-old female with history of asthma coming in today complaining shortness of breath. Patient states that she just feels that she can not catch her breath. She did 2 albuterol nebulizers and 1 DuoNeb approximately hour and a half ago. Still feeling very short of breath with chest tightness. She denies any fevers or chills. Has had has aspirations like this in the past. Denies any sick contacts. She denies any nausea or vomiting. No chest pain. <Chanel Vickers MD - Last Filed: 10/08/25 22:05> Related Data Home medications: Home Medications ?Medication ?Instructions ?Recorded ?Confirmed albuterol 90 mcg/actuation aerosol mcg inhalation 05/26/23 inhaler fluticasone propionate 250 1 inh inhalation BID 05/26/23 05/26/23 mcg/actuation blister powder for inhalation (Flovent Diskus) venlafaxine 75 mg capsule,extended 75 mg PO DAILY 05/26/23 05/26/23 release 24 hr fluticasone furoate 200 inhalation 10/08/25 mcg-vilanterol 25 mcg/dose inhalation powder Previous Rx's ?Medication ?Instructions ?Recorded ipratropium 0.5 mg-albuterol 3 mg 3 ml inhalation Q6H PRN #90 mL 05/26/23 (2.5 mg base)/3 mL nebulization soln <Chanel Vickers MD - Last Filed: 10/08/25 22:05> Allergies/adverse reactions: Allergies Allergy/AdvReac Type Severity Reaction Status Date / Time oxycodone Allergy Verified 05/26/23 08:34 <Chanel Vickers MD - Last Filed: 10/08/25 22:05> Review of Systems Status of ROS: Reports: 10 or more systems reviewed and unremarkable except as noted in History and below <Chanel Vickers MD - Last Filed: 10/08/25 22:05> [facility] Social History: Social History Smoking Status: Never smoker Do you use any of these nicotine containing products: None Second hand tobacco smoke exposure: No How often do you have a drink containing alcohol: never How often do you have six or more drinks on one occasion: Never AUDIT-C Alcohol total score: 0 Non-prescribed substance use: denies use service: No <Chanel Vickers MD - Last Filed: 10/08/25 22:05> Exam Narrative: Exam Narrative: Well-nourished well-developed patient, appears a bit anxious. Alert and oriented. Answers questions appropriately. Mood and affect are appropriate. Thoughts are goal oriented and rational. No tangential or magical thinking noted. Patient speaks in full sentences without needing to catch her breath. HEENT: Normocephalic atraumatic. Pupils are equally round reactive to light. Extraocular muscles are intact. Conjunctivae are moist without any icterus noted. Moist mucous membranes. Posterior pharynx is normal. Cardiovascular: Tachycardic. Lungs: Clear to auscultation bilaterally no wheezes rhonchi or rales are appreciated. Patient takes deep breaths without any discomfort. Extremities: Bilateral lower extremities are without edema. Skin: Well perfused without any obvious rashes. <Chanel Vickers MD - Last Filed: 10/08/25 22:05> Const: Vital Signs, click to edit/add: Vital Signs - 24 hr 10/08/25 20:31 10/08/25 22:16 Temperature 98.2 F Pulse Rate [Right Pulse Oximeter] 126 H 76 Respiratory Rate 24 18 Blood Pressure [Ri ght Upper Arm] 132/79 110/78 Pulse Oximetry 96 100 Oxygen Delivery Me thod Room Air <Chanel Vickers MD - Last Filed: 10/08/25 22:05> Vital Signs, click to edit/add: Vital Signs - 24 hr 10/08/25 20:31 10/08/25 22:16 Temperature 98.2 F Pulse Rate [Right Pulse Oximeter] 126 H 76 Respiratory Rate 24 18 Blood Pressure [Ri ght Upper Arm] 132/79 110/78 Pulse Oximetry 96 100 Oxygen Delivery Me thod Room Air <Jose Luis Ly MD - Last Filed: 10/08/25 23:10> Course Course ED Course: We did go ahead and do a DuoNeb and oral prednisone. EKG was done given her tachycardia upon arrival. EKG, read by me, shows a normal sinus rhythm with a pulse of 68, normal MD, QRS and QTC intervals. Chest x-ray, read by me, does not show any acute infiltrates. Triple swab is negative. After treatment patient states that she does not feel any different. At this time I did order oral Ativan to see if there is an anxiety component to this. Will also proceed with labs including troponin, CBC, BMP and D-dimer. Will have nursing do a peak flow. Care transferred to [facility] ED. <Chanel Vickers MD - Last Filed: 10/08/25 22:05> Reevaluation(s) Time of Reevaluation #1: 22:46 <Jose Luis Ly MD - Last Filed: 10/08/25 23:10> Reevaluation #1: I went back in and re-evaluated the patient, her lungs are clear, her peak flows are 250 which is more consistent with asthma. She is overall feeling better. <Jose Luis Ly MD - Last Filed: 10/08/25 23:10> Time of Reevaluation #2: 23:09 <Jose Luis Ly MD - Last Filed: 10/08/25 23:10> Reevaluation #2: Her peak flows average 250, which is consistent with reactive airway disease, we discussed this, I think she would benefit from prednisone, and also giving her another inhaler, her laboratory work was reassuring the normal also. She was very comfortable this will discharge her home, she will re present of signs and symptoms of worsening which we discussed. <Jose Luis Ly MD - Last Filed: 10/08/25 23:10> Vital Signs Vital signs: Initial Vital Signs Respiratory Effort Short of Breath 10/08/25 20:29 Respiratory Depth Normal 10/08/25 20:29 Respiratory Pattern Normal 10/08/25 20:29 Vital Signs Temperature 98.2 F 10/08/25 20:31 Pulse Rate 126 H 10/08/25 20:31 Respiratory Rate 24 10/08/25 20:31 Blood Pressure 132/79 10/08/25 20:31 Pulse Oximetry 96 10/08/25 20:31 Oxygen Delivery Method Room Air 10/08/25 20:31 Temperature 98.2 F 10/08/25 20:31 Pulse Rate 76 10/08/25 22:16 Respiratory Rate 18 10/08/25 22:16 Blood Pressure 110/78 10/08/25 22:16 Pulse Oximetry 100 10/08/25 22:16 Oxygen Delivery Method Room Air 10/08/25 20:31 <Chanel Vickers MD - Last Filed: 10/08/25 22:05> Initial Vital Signs Respiratory Effort Short of Breath 10/08/25 20:29 Respiratory Depth Normal 10/08/25 20:29 Respiratory Pattern Normal 10/08/25 20:29 Vital Signs Temperature 98.2 F 10/08/25 20:31 Pulse Rate 126 H 10/08/25 20:31 Respiratory Rate 24 10/08/25 20:31 Blood Pressure 132/79 10/08/25 20:31 Pulse Oximetry 96 10/08/25 20:31 Oxygen Delivery Method Room Air 10/08/25 20:31 Temperature 98.2 F 10/08/25 20:31 Pulse Rate 76 10/08/25 22:16 Respiratory Rate 18 10/08/25 22:16 Blood Pressure 110/78 10/08/25 22:16 Pulse Oximetry 100 10/08/25 22:16 Oxygen Delivery Method Room Air 10/08/25 20:31 <Jose Luis Ly MD - Last Filed: 10/08/25 23:10> Medications Administered Medications: Discontinued Medications Generic Name Dose Route Start Last Admin Trade Name Freq PRN Reason Stop Dose Admin Albuterol/Ipratropium 1 neb 10/08/25 20:46 10/08/25 22:11 Iprat-Albut 0.5-2.5 Mg/3 Ml Neb IH 10/08/25 20:47 1 neb ONCE ONE Administration Lorazepam 0.5 mg 10/08/25 21:46 10/08/25 22:10 Lorazepam 0.5 Mg Tablet PO 10/08/25 21:47 0.5 mg ONCE ONE Administration Prednisone 50 mg 10/08/25 20:46 10/08/25 22:10 Prednisone 10 Mg Tablet PO 10/08/25 20:47 50 mg ONCE ONE Administration <Chanel Vickers MD - Last Filed: 10/08/25 22:05> Discontinued Medications Generic Name Dose Route Start Last Admin Trade Name Alba PRN Reason Stop Dose Admin Albuterol/Ipratropium 1 neb 10/08/25 20:46 10/08/25 22:11 Iprat-Albut 0.5-2.5 Mg/3 Ml Neb IH 10/08/25 20:47 1 neb ONCE ONE Administration Lorazepam 0.5 mg 10/08/25 21:46 10/08/25 22:10 Lorazepam 0.5 Mg Tablet PO 10/08/25 21:47 0.5 mg ONCE ONE Administration Prednisone 50 mg 10/08/25 20:46 10/08/25 22:10 Prednisone 10 Mg Tablet PO 10/08/25 20:47 50 mg ONCE ONE Administration <Jose Luis Ly MD - Last Filed: 10/08/25 23:10> Medical Decision Making Lab Data Labs: Lab Results 10/08/25 10/08/25 10/08/25 Range/Units 20:50 21:48 22:10 WBC 9.54 (4.50-11.00) K/uL RBC 4.15 (4.00-5.20) m/uL Hgb 12.1 (12.0-16.0) gm/dL Hct 35.7 (33.0-51.0) % MCV 86 (80-100) fL MCH 29 (26-34) pg MCHC 34 (32-36) gm/dL RDW Coeff of Jessa 12.8 (11.5-15.5) % Plt Count 278 (140-440) K/uL Neut % (Auto) 67.1 (42.0-72.0) % Lymph % (Auto) 24.7 (20-44) % Slope % (Auto) 5.7 (0.0-11.0) % Eos % (Auto) 2.0 (0.0-7.0) % Baso % (Auto) 0.4 (0.0-3.0) % Neut # (Auto) 6.40 (1.7-7.0) K/uL Lymph # (Auto) 2.36 (0.90-2.90) K/uL Slope # (Auto) 0.50 (0.00-0.90) K/UL Eos # (Auto) 0.19 (0.00-0.50) K/uL Baso # (Auto) 0.04 (0.00-0.30) K/uL Abs Immat Gran (auto) 0.01 (0.00-0.30) K/uL Imm/Tot Granulo (auto) 0.1 % D-Dimer Quant (PE/DVT) < 0.27 (0.00-0.50) ug/ml Sodium 139 (135-149) mmol/L Potassium 3.4 L (3.6-5.1) mmol/L Chloride 105 (96-114) mmol/L Carbon Dioxide 26 (20-32) mmol/L Anion Gap 8 (7-15) mEq/L BUN 16 (5-24) mg/dL Creatinine 0.9 (0.5-1.5) mg/dL Estimated Creat Clear 69.42 Estimated GFR 83 ml/min Glucose 133 H (60-115) mg/dL Calcium 8.8 (8.4-10.6) mg/dL POC Troponin I High Sensi 2.9 (2.9-13.0) pg/mL SARS-CoV-2 (PCR) Negative SARS-CoV-2 (Negative) Influenza Type A (PCR) Negative PCR FLU A (Negative) Influenza Type B (PCR) Negative PCR FLU B (Negative) RSV (PCR) Negative PCR RSV (Negative) <Chanel Vickers MD - Last Filed: 10/08/25 22:05> Lab Results 10/08/25 10/08/25 10/08/25 Range/Units 20:50 21:48 22:10 WBC 9.54 (4.50-11.00) K/uL RBC 4.15 (4.00-5.20) m/uL Hgb 12.1 (12.0-16.0) gm/dL Hct 35.7 (33.0-51.0) % MCV 86 (80-100) fL MCH 29 (26-34) pg MCHC 34 (32-36) gm/dL RDW Coeff of Jessa 12.8 (11.5-15.5) % Plt Count 278 (140-440) K/uL Neut % (Auto) 67.1 (42.0-72.0) % Lymph % (Auto) 24.7 (20-44) % Slope % (Auto) 5.7 (0.0-11.0) % Eos % (Auto) 2.0 (0.0-7.0) % Baso % (Auto) 0.4 (0.0-3.0) % Neut # (Auto) 6.40 (1.7-7.0) K/uL Lymph # (Auto) 2.36 (0.90-2.90) K/uL Slope # (Auto) 0.50 (0.00-0.90) K/UL Eos # (Auto) 0.19 (0.00-0.50) K/uL Baso # (Auto) 0.04 (0.00-0.30) K/uL Abs Immat Gran (auto) 0.01 (0.00-0.30) K/uL Imm/Tot Granulo (auto) 0.1 % D-Dimer Quant (PE/DVT) < 0.27 (0.00-0.50) ug/ml Sodium 139 (135-149) mmol/L Potassium 3.4 L (3.6-5.1) mmol/L Chloride 105 (96-114) mmol/L Carbon Dioxide 26 (20-32) mmol/L Anion Gap 8 (7-15) mEq/L BUN 16 (5-24) mg/dL Creatinine 0.9 (0.5-1.5) mg/dL Estimated Creat Clear 69.42 Estimated GFR 83 ml/min Glucose 133 H (60-115) mg/dL Calcium 8.8 (8.4-10.6) mg/dL POC Troponin I High Sensi 2.9 (2.9-13.0) pg/mL SARS-CoV-2 (PCR) Negative SARS-CoV-2 (Negative) Influenza Type A (PCR) Negative PCR FLU A (Negative) Influenza Type B (PCR) Negative PCR FLU B (Negative) RSV (PCR) Negative PCR RSV (Negative) <Jose uLis Ly MD - Last Filed: 10/08/25 23:10> Imaging Data Chest x-ray: Attestation: I have reviewed the pertinent imaging results. <Chanel Vickers MD - Last Filed: 10/08/25 22:05> Radiologist's impression: Chest 2 views. COMPARISON: 05/26/2023. FINDINGS: Cardiovascular and mediastinum: Cardiomediastinal silhouette is within normal limits. Lungs and pleural spaces: Lungs are clear. No sign of infiltrate or mass. No sign of pleural effusion. No pneumothorax. Bones and soft tissues: No significant findings. IMPRESSION: No acute or significant findings. <Chanel Vickers MD - Last Filed: 10/08/25 22:05> Discharge Plan Discharge Clinical Impression: Shortness of breath, Asthma with acute exacerbation <Chanel Vickers MD - Last Filed: 10/08/25 22:05> Patient Disposition: Home, Self-Care <Chanel Vickers MD - Last Filed: 10/08/25 22:05> Condition: Stable <Chanel Vickers MD - Last Filed: 10/08/25 22:05> Instructions: Asthma (DC), How to Use a Metered-Dose Inhaler and a Spacer (DC), Wheezing (ED) <Chanel Vickers MD - Last Filed: 10/08/25 22:05> Additional Instructions: home, rest, use of prednisone, inhaler, if he of increasing shortness of breath or other symptoms please come back, <Chanel Vickers MD - Last Filed: 10/08/25 22:05> Activity Level: Light activity <Chanel Vickers MD - Last Filed: 10/08/25 22:05> Light activity <Jose Luis Ly MD - Last Filed: 10/08/25 23:10> Discharge Diet: Regular <Chanel Vickers MD - Last Filed: 10/08/25 22:05> Regular <Jose Luis Ly MD - Last Filed: 10/08/25 23:10> Prescriptions: No Action albuterol 90 mcg/actuation aerosol inhalation Flovent Diskus 250 mcg/actuation blister with device 1 inh inhalation BID venlafaxine 75 mg capsule,extended release 24hr 75 mg PO DAILY ipratropium-albuterol 0.5 mg-3 mg(2.5 mg base)/3 mL solution for nebulization 3 ml inhalation Q6H PRNQty: 90 0RF fluticasone furoate-vilanterol 200-25 mcg/dose blister with device inhalation <Chanel Vickers MD - Last Filed: 10/08/25 22:05> Follow Up/Referrals: Eliazar Newman MD [Primary Care Provider, Family Practice] <Chanel Vickers MD - Last Filed: 10/08/25 22:05> Stand Alone Forms: [facility] Info Instructions <Chanel Vickers MD - Last Filed: 10/08/25 22:05>
[2025-10-08 21:46] LABS: PCR FLU A Negative PCR FLU A (Negative); PCR FLU B Negative PCR FLU B (Negative); PCR RSV Negative PCR RSV (Negative); SARS PCR* Negative SARS-CoV-2 (Negative)
[2025-10-08] MEDS: IPRAT-ALBUT 0.5-2.5 MG/3 ML NEB 1 NEB IH (22:11)
[2025-10-08 22:16] VITALS: BP 110/78; PULSE 76; RESP 18; O2SAT 100
[2025-10-08 22:26] LABS: Hematocrit* 35.7 % (33.0-51.0); Hemoglobin* 12.1 gm/dL (12.0-16.0); Immature Granulocytes Abs Auto 0.01 K/uL (0.00-0.30); Immature Granulocytes Pct Auto 0.1 %; Lymphocytes Absolute Auto 2.36 K/uL (0.90-2.90); Mean Corpuscular HGB Conc 34 gm/dL (32-36); Mean Corpuscular Hemoglobin 29 pg (26-34); Mean Corpuscular Volume 86 fL (80-100); RDW Coefficient of Variation % 12.8 % (11.5-15.5); Red Blood Count* 4.15 m/uL (4.00-5.20); White Blood Count* 9.54 K/uL (4.50-11.00)
[2025-10-08 22:32] LABS: Slide Review Reflex No
[2025-10-08 22:41] LABS: Chloride* 105 mmol/L (96-114); Potassium* 3.4 mmol/L (3.6-5.1); Sodium* 139 mmol/L (135-149)
[2025-10-08 22:43] LABS: Blood Urea Nitrogen* 16 mg/dL (5-24); Creatinine* 0.9 mg/dL (0.5-1.5); Est. Creatinine Clearance* 69.42; Estimated Glomerular Filt Rate 83 ml/min
[2025-10-08 22:44] LABS: Anion Gap 8 mEq/L (7-15); Calcium* 8.8 mg/dL (8.4-10.6); Carbon Dioxide* 26 mmol/L (20-32); Glucose* 133 mg/dL (60-115)
[2025-10-08 22:46] LABS: D Dimer Quantitative* < 0.27 ug/ml (0.00-0.50)
== END 2025-10-08 23:15 | disposition home or self-care (01) ==
PROVIDERS: Family Medicine; Emergency Provider Family Medicine; PCP Family Medicine
DX: J45.901 Unspecified asthma with (acute) exacerbation (principal); R00.0 Tachycardia, unspecified; R06.02 Shortness of breath; F41.9 Anxiety disorder, unspecified; Z79.51 Long term (current) use of inhaled steroids
CPT/HCPCS: 36415; 71046; 80048; 84484; 85025; 85379; 87631; 93005; 94640; 99284; 99285; A9270; J7512

== ENCOUNTER 2025-10-19 20:53 | Emergency (ER) | payer MEDICAID, SELFPAY ==
--- OUTSIDE RECORDS SUMMARY | 2025-10-19 20:55 | XMS_ITS | Clinical Summary ---
Author Organization [place] Address [address] [place] [address] Care Team Providers Care Animal Behaviorist Name Role Phone Eliazar Newman MD Unavailable Ira Loza PA-C Unavailable Slime Hernandez MD Unavailable Chandu Dean MD Unavailable Eliazar Newman MD Primary Care Provider Joann Seaman APRN FRAUD REPRESENTATIVE Unavailable Un available Chandu Dean MD Unavailable Chandu Dean MD Unavailable Allergies Active AllergyReactionsCriticalityNoted KohgGwscgrxdXqwnqbfyiLafoKur15/28/2017 Medications MedicationSigDispense QuantityRefillsLast FilledStart DateEnd DateStatus Cetirizine [...] each 1115Active Active Problems ProblemNoted DateDiagnosed DateVaginal ouucgzfw20/27/2017Nephrolithiasis 04/07/20129217Apyblox45/03/2011CARDIOVASCULAR SCREENING; LDL GOAL LESS THAN 160 08/26/2010Moderate persistent asthma Resolved Problems ProblemNoted DateDiagnosed DateResolved DateIndication for care in labor or lpnbcibx93Encounter for triage in yzwbnrl4508/03/2019 08/13/2019Preterm laborSupervision of other normal , ceypzpgqwk23Hip pain, right Supervision of low-risk tfdpziplo85Indication for care in labor or ogylxbbc86Encounter for supervision of normal yylrarwhs04Encounter for supervision of other normal Streptococcus B carrier state complicating Active laborVaginal exvgrjfv25/13/2015 12/14/2015Preterm zqjupynpujma94/Low-lying bvlqkofl66/05/2014 10/31/2014History of macrosomia in infant in prior , currently Encounter for supervision of other normal Overview (08/28/2015): Diagnosis updated by automated process. Provider to review and confirm. Active laborLabor and delivery, indication for care reech tejlhkhtfzdz50/24/Pyelonephritis Vaginal cyst04/17/Urethra, diverticulum 04/15/Right flank pain Overview (04/22/2012): R ureteral stent History of depression, currently gfyconqu40History of macrosomia in infant in prior , currently /27/2012 09/25/2012Encounter for supervision of other normal qnixccenq37/27/2012 09/25/2012 Overview (08/28/2015): Diagnosis updated by automated process. Provider to review and confirm. Obrnopurwdg86Streptococcus infection in conditions classified elsewhere and of unspecified site, group B1 Overview (08/07/2010): vaginal Placenta waijlz23 Overview (04/20/2010): Low-lying Xsuyuzix57 Overview (07/28/2015): Problem list name updated by automated process. Provider to review Supervision of normal first mioyfljmz47Dysmenorrhea01/05/2007 02/12/2010Excessive or frequent xzpjrqcuclim35 Encounters DateTypeDepartmentCare ZeblDnqvxxmqocw25/06/2025[facility] [place] [address] [place] [phone] Venessa Grimes RN 08/31/2025[facility] [address] [place] [phone] [facility] 08/29/2025Telephone [place] [address] [place] [phone] Chandu Dean MD Prior Auth - Medication (fluticasone-vilanterol (BREO ELLIPTA) 200-25 MCG/ACT inhaler- APPROVED)08/28/2025[facility] [place] [address] [place] [phone] Chandu Dean MD Moderate persistent asthma with acute exacerbation (Primary Dx)08/05/2025 7:00 AM CDTOffice Visit [place] [address] [place] [phone] Chandu Dean MD Seasonal allergic rhinitis due to pollen (Primary Dx); Moderate persistent asthma without complication; Moderate persistent asthma with acute huqyxdauzpcl24/09/7388Xdrhef86/06/2025 Refill [place] [address] [place] [phone] Chandu Dean MD Refill Request (fluticasone-vilanterol (BREO ELLIPTA) 200-25 MCG/ACT inhaler) from Last 3 Months Immunizations ImmunizationAdministration DatesNext CsrApiZ5205/11/2002,12/01/2001,05/19/2001 Historical DTP/aP06/28/1996,04/06/1991,10/31/1987,1986,1986Influenza (IIV3) PF07/03/2012,07/23/2010,09/04/1999Influenza (prior to 2023)07/23/2010 [...] drink = 0.6 oz pure alcohol)PHQ-2AnswerDate RecordedPHQ-2 Xpctd091Edinburgh Depression ScaleAnswerDate RecordedEdinburgh Depression Scale Total4 08/12/2019Last [...] in an abandoned building, in an overnight half-way, or couch-surfing.)Yes11/03/2023re you worried about losing your [...] ex-partner?No11/04/2023CommentsNoSex and Gender InformationValueDate RecordedSex Assigned at NlhtsXresau79/15/2021 9:50 AM CDTLegal ObzQfedtv25/04/2012 3:42 AM CSTGender RieviturWelwss95/15/2021 9:50 AM CDTSexual LmdbfmspzglNxcikucm70/15/2021 9:51 AM 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 on fileNot on fileNot on file Last Filed Vital Signs Vital SignReadingTime TakenCommentsBlood Gfrtebbd170/7210/07/2025 6:57 AM CDT Ldfpz3553 6:57 AM JFUXnbcslbrwnk73.5 ??C (97.7 ??F)05/21/2025 9:31 AM CDTRespiratory Woyu764005/21/2025 9:31 AM CDTOxygen Maiwnezqjm45%08/05/2025 6:57 AM CDTInhaled Oxygen Concentration--Usjtco14.3 kg (183 lb 9.6 oz)08/05/2025 6:57 AM ADBYzhxfc267 cm (5' 3)12/11/2023 10:12 AM CSTBody Mass Index32.52012/11/2023 10:12 AM TON CYLINDER INSPECTOR Plan of Treatment Health MaintenanceDue DateLast DoneCommentsPNEUMOCOCCAL VACCINE: PEDIATRICS (0 to 5 YEARS) AND AT-RISK PATIENTS (6 to 49 YEARS) (1 of 2 - PCV)2005ASTHMA ACTION PLAN, 04/10/2021, 05/28/2018, Additional history existsYEARLY PREVENTIVE VISIT, 12/10/2018, 12/14/2015, Additional history existsCOVID-19 VACCINE ( season)2025 INFLUENZA VACCINE (#1), 12/10/2018 (Declined), 07/12/2016, Additional history existsASTHMA CONTROL TEST, 06/29/2025, 07/29/2024, Additional history existsADVANCE CARE EQIMHSUG77 ANNUAL REVIEW OF HM INUWPJ73/12/2024, 08/05/2022, 1DIABETES RPPDOGAQG99/06/2024, 07/18/2021, 04/10/2021, Additional history exists HPV TEST/06/2024, 12/10/2018PAP, 12/10/2018, 12/14/2015, Additional history existsDTAP/TDAP/TD VACCINE (12 - Td or Tdap) , 06/01/2019, 10/30/2016, Additional history existsZOSTER VACCINE (1 of 2)2036HEPATITIS B ABULKGIIopdnymqn72/16/2002, 12/01/2001, 05/19/2001MENINGITIS JSGGIROBhyjafjom18/19/2005HIV JWOLEUHDPWiffxkqid95/28/2019, 06/05/2016, 02/28/2016, Additional history existsHEPATITIS C SCREENINGCompleted 1PHQ-2 (once per calendar year)Iqugzvnhy05/03/2025, 06/29/2025, 07/29/2024, Additional history existsHPV VACCINE (No Doses Required)Completed Medical Devices ImplantedTypeAreaManufacturerDevice IdentifierShelf Expiration DateModel / Serial / LotStent Ureteral Dbl Pigtail Inlay [id number] Implanted:Qty: 1 on 04/07/2012 [facility] UreterCR [employer]-LTZEJXIW06/01/[id number] / / [id number]:removed 1548 04/07/12Stent Ureteral Dbl Pigtail Inlay [id number] Implanted:Qty: 1 on 04/07/2012 by [facility] [employer] [employer]-UFFYFOEG95/01/[id number] / / [id number]:removed 1606 04/07/2012 JBStent Ureteral Silhouette [id number] Implanted:Qty: 1 on 04/07/2012 by [facility]APPLIED MEDICAL [id number] / / [id number]:removed 1612 04/07/2012Stent Ureteral Inlay [id number] Implanted:Qty: 1 on 04/07/2012 by [facility]: UreterCR [employer]08/27/[id number] / / [id number] Procedures Procedure NamePriorityDate/TimeAssociated DiagnosisCommentsXRAY IMAGING - HIM SCAN10/08/2025 12:00 AM CSTCOMPREHENSIVE METABOLIC MANNVKarbuve22/09/2024 2:09 PM TON CYLINDER INSPECTOR Paresthesia GYNECOLOGIC OCZDKEYHThwjyhz78/09/2024 2:05 PM TON CYLINDER INSPECTOR Cervical cancer screening HPV HIGH RISK TYPES DNA BXMRWWHEPknmttc42/09/2024 2:05 PM TON CYLINDER INSPECTOR Cervical cancer screening HEPATITIS C SCREEN REFLEX TO HCV RNA QUANT AND OEVHWIFBAwbrvqb49/15/2021 10:09 AM CDT Need for hepatitis C screening test HIV ANTIGEN ANTIBODY GUSPNLdlqrou63/28/2019 10:01 AM TON CYLINDER INSPECTOR Supervision of normal ASTHMA ACTION SQJNCyvnrwi55/28/2015 1:52 PM CSTfrom Last 3 Months or Most Recently Relevant to Health Maintenance Results * Xray Imaging - HIM Scan (10/08/2025 12:00 AM TON CYLINDER INSPECTOR)Anatomical RegionLaterality ModalityOtherSpecimen (Source)Anatomical Location / LateralityCollection Method / VolumeCollection TimeReceived Time10/08/2025 Narrative Authorizing ProviderResult TypeResult StatusProvider OutsideIMG DIAGNOSTIC IMAGING ORDERABLESFinal Result * Comprehensive metabolic panel (11/04/2023 2:09 PM TON CYLINDER INSPECTOR)ComponentValueRef Range Test MethodAnalysis TimePerformed AtPathologist AgspaeoqdGfprfs458860 - 145 mmol/L11/04/2023 10:03 PM CSTUU LABORATORYComment:Reference [...] - 29 mmol/L11/04/2023 10:03 PM CSTUU LABORATORYAnion Nrf330 - 15 mmol/L11/04/2023 10:03 PM CSTUU LABORATORYUrea Nwolsqgu83.76.0 - 20.0 mg/dL 11/04/2023 10:03 PM CSTUU LABORATORYCreatinine0.890.51 - 0.95 mg/dL11/04/2023 10:03 PM CSTUU LABORATORYGFR Rxlrztxl53>60 mL/min/1.94e82111/04/2023 10:03 PM CSTUU LABORATORYCalcium9.48.6 - 10.0 mg/dL11/04/2023 10:03 PM CSTUU LABORATORY Ifuvidki69696 - 107 mmol/L11/04/2023 10:03 PM CSTUU PLHCWROJTYWylghip6254 - 99 mg/dL11/04/2023 10:03 PM CSTUU LABORATORYAlkaline Gefuofmpcck7462 - 150 U/L 11/04/2023 10:03 PM CSTUU LABORATORYComment:Reference intervals for this test were updated on 09/09/2023 to more accurately reflect our healthypopulation. There may be differences in the flagging of prior results with similar values performedwith this method. Interpretation of those prior results can be made in the context of the updated reference intervals.JZB895 - 45 U/L11/04/2023 10:03 PM CSTUU LABORATORYComment:Reference intervals for this test were updated on 04/07/2023 to more accurately reflect our healthy population. There may be differences in the flagging of prior results with similar values performed with this method. Interpretation of those prior results can be made in the context of the updated reference intervals.SUO107 - 50 U/L11/04/2023 10:03 PM CSTUU LABORATORYComment:Reference [...] PM CSTUU LABORATORYBilirubin Total0.4<=1.2 mg/dL11/04/2023 10:03 PM TON CYLINDER INSPECTOR UU LABORATORYSpecimen (Source)Anatomical Location / LateralityCollection Method / VolumeCollection TimeReceived TimeBloodBLOOD SPECIMEN / Unknown Venipuncture / Hvqismv7411/04/2023 2:09 PM CST11/04/2023 2:11 PM TON CYLINDER INSPECTOR Narrative Authorizing ProviderResult TypeResult StatusSusaab Seaman APRN CNPLAB - BLOOD ORDERABLESFinal ResultPerforming OrganizationAddressCity/State/ZIP Code Phone Number U LABORATORY [facility] [address], [address] [place] [address], [facility] [[email or web address]] [phone] * Pap screen with HPV - recommended age 30 - 65 years (11/04/2023 2:05 PM TON CYLINDER INSPECTOR) ComponentValueRef RangeTest MethodAnalysis TimePerformed AtPathologist SignatureInterpretationNegative for [...] LABSSpecimen AdequacySatisfactory for evaluation, endocervical/transformation zone component mesdrki4811/07/2023 8:33 AM CSTUM SPECIALTY LABSClinical Tvzozrkqhzmbbvt55/12/2024 8:33 AM CST[facility] SPECIALTY LABSLMP/Menopause Date 8:33 AM [facility]ST[facility] SPECIALTY LABSReflex TestingYes regardless of zvfmbb4411/07/2023 8:33 AM [facility]ST[facility] SPECIALTY LABSPrevious Abnormal?No11/07/2023 8:33 AM [facility]ST[facility] SPECIALTY LABSPerforming LabsThe technical component of this testing was completed at [facility] Roexcqonlv93/12/2024 8:33 AM [facility] Specimen (Source)Anatomical Location / LateralityCollection Method / Volume Collection TimeReceived TimeBrushingCERVIX UTERI STRUCTURE / UnknownNon-blood Collection / Nucqebe7111/04/2023 2:05 PM CST11/04/2023 2:17 PM TON CYLINDER INSPECTOR Narrative Authorizing ProviderResult TypeResult StatusSuerasto Seaman SENIOR BOILER OPERATOR CNPLAB - BEAKER APFinal ResultPerforming OrganizationAddressCity/State/ZIP CodePhone Number SPECIALTY LABS Specialty Lab [address], [address] [place] [address], [facility] [[email or web address]] [phone] * HPV High Risk Types DNA Cervical (11/04/2023 2:05 PM TON CYLINDER INSPECTOR)ComponentValueRef RangeTest MethodAnalysis TimePerformed AtPathologist SignatureOther HR HPV BrubjvmgIhattfyt63/15/2024 2:13 PM CSTUM MOLECULAR TIIKKLAVYIYZHR12 DNA NhttvsjyRmesryoj22/15/2024 2:13 PM [facility] MOLECULAR EHSWXKQTLCKHWW26 DNA UmerijjlObxxgxpu43/15/2024 2:13 PM CSTUM MOLECULAR DIAGNOSTICSFINAL DIAGNOSIS This patient's sample is negative for HPV DNA. This test was developed and its performance characteristics determined by the [facility], Molecular Diagnostics Laboratory. It has not been [...] BrushingCERVIX UTERI STRUCTURE / UnknownNon-blood Collection / Jticwnu0511/04/2023 2:05 PM CST11/10/2023 7:47 AM TON CYLINDER INSPECTOR Narrative Authorizing ProviderResult TypeResult StatusSusan Janessa Seaman APRN CNPLAB - BLOOD ORDERABLESFinal ResultPerforming OrganizationAddressCity/State/ZIP Code Phone Number [facility] [address] [facility] [place] [address], [facility] [[email or web address]] [phone] * Hepatitis C Screen Reflex to HCV RNA Quant and Genotype (04/10/2021 10:09 AM CDT)ComponentValueRef RangeTest MethodAnalysis TimePerformed AtPathologist SignatureHepatitis C AntibodyNonreactiveNR^Jheusasohqp97/15/2021 9:[address] [facility]ITALComment: Assay performance characteristics have not been established for newborns, infants, and children Specimen (Source)Anatomical Location / LateralityCollection Method / Volume Collection TimeReceived UzaiNiabr32/15/2021 10:09 AM CDT04/10/2021 10:14 AM CDT Narrative Authorizing ProviderResult TypeResult StatusEliazar Glory Trent MDLAB - BLOOD ORDERABLES Final ResultPerforming OrganizationAddressCity/State/ZIP CodePhone Number [address] [address] * HIV Antigen Antibody Combo (12/24/2018 10:01 AM TON CYLINDER INSPECTOR)ComponentValueRef Range Test MethodAnalysis TimePerformed AtPathologist SignatureHIV Antigen Antibody ComboNonreactiveNR^Zaqrekvqbti01/01/2019 12:14 PM CSTUNR AD[facility] SHOCK TRAUMA CENTERComment:HIV-1 p24 Ag & HIV-1/HIV-2 Ab Not DetectedSpecimen (Source)Anatomical Location / LateralityCollection Method / VolumeCollection TimeReceived TimeBlood specimen (specimen)12/24/2018 10:01 AM CST12/24/2018 10:02 AM TON CYLINDER INSPECTOR Narrative Authorizing ProviderResult TypeResult StatusMike West MDLAB - BLOOD ORDERABLESFinal ResultPerforming OrganizationAddressCity/State/ZIP CodePhone Number [address] [address] from Last 3 Months or Most Recently Relevant to Health Maintenance Insurance * Guarantor: Jaelyn CamAccount TypeRelation to PatientDate of PhoneBilling AddressPersonal/SmplgvScgz[address] [place] [address] * Guarantor: Jaelyn CamAccount TypeRelation to PatientDate of PhoneBilling AddressPersonal/WdwkdvTafb1986 [address] [place] [address] * Guarantor: Jaelyn CamAccount TypeRelation to PatientDate of PhoneBilling AddressMedication JfacugeFsxl1986 [address] [place] [address] Advance Directives For more information, please contact: [phone] * Full Code (Latest Code Status on File) Date ActivatedDate InactivatedComments04/07/2012 6:31 PM04/09/2012 7:46 PM Care Teams Team MemberRelationshipSpecialtyStart [place] [address] [place] [address] PCP - GeneralFamily Medicine12/11/23 [place] [address] [place] [address] Assigned PCP01/15/21 Ira Loza PA-C [address] [place] [address] Referring PhysicianFamily Hbkoxqbd55/14/21 Slime Hernandez MD [address] [place] [address] MDEndocrinology, Diabetes, and Khhmkkznrd16/14/21 Chandu Dean MD [address] [place] [address] MDAllergy & Immunology11/24/23 Joann Seaman APRN FRAUD REPRESENTATIVE Referring Physicianmi Medicine03/11/24 Chandu Dean MD [address] [place] [address] Assigned Allergy Provider01/16/25 Chandu Dean MD [address] [place] [address] MDAllergy & Cxaycbvyre52/8/25
--- OUTSIDE RECORDS SUMMARY | 2025-10-19 20:55 | XMS_ITS | Clinical Summary ---
Author Organization [facility] Address [address] [place] [address] Care Team Providers Care Cco Name Role Phone Wicho Deluna PA-C Primary Care Provider [phone] Source Comments You are receiving this document [...] for each transition of care or referral. [employer] Allergies Active AllergyReactionsCriticalityNoted HzzuNveuhjzpNclpffznbLfkcTkl33/28/2017 Medications MedicationSigDispense QuantityRefillsLast FilledStart DateEnd DateStatus FLUoxetine [...] mouth.12/11/2023ctive Active Problems ProblemNoted DateDiagnosed DateModerate persistent nsiekx3101/05/2024nxiety and yfiglmblvi76/13/6251Myzesokobgbyovn42/12/0952Ydctrgg80/03/2011 Social History Tobacco UseTypesPacks/DayYears UsedDateSmoking Tobacco: NeverSmokeless Tobacco: NeverAlcohol UseStandard Drinks/WeekCommentsYes0 (1 standard drink = 0.6 oz pure alcohol)occasionalCommentsNoSex and Gender InformationValueDate Recorded Sex Assigned at BirthNot on fileLegal AcqNufyim16/10/2012 4:46 AM CDTGender IdentityNot on fileSexual OrientationNot on file Last Filed Vital Signs Vital SignReadingTime TakenCommentsBlood Ndrqdiss996/6403 9:42 AM CDT Lfabh308601/05/2024 9:42 AM SAUWgxlsavxepj18.4 ??C (99.3 ??F)01/05/2024 9:42 AM CDTRespiratory Nqlq507401/05/2024 9:42 AM CDTOxygen Hmmzyjqrnu69%01/05/2024 9:42 AM CDTInhaled Oxygen Concentration--Zdqqxx16.7 kg (158 lb)05/08/2018 12:20 PM RQDTzzwri869.3 cm (5' 3.5)05/08/2018 12:20 PM CDTBody Mass [...] history existsZoster/Shingles Vaccine (1 of 2)2036IPV (Polio) PmrdszaJoovytqcq48/11/1991, 10/31/1987, 1986, Additional history exists MCV4 GbvixawPrdrzlgwj72/19/2005, 05/14/2005HPV Vaccine (No Doses Required) CompletedHepA VaccineAged OutNo longer eligible based on patient's age to complete this topicHib VaccineAged OutNo longer eligible based on patient's age to complete this topicMeningococcal B VaccineAged OutNo longer eligible based on patient's age to complete this topic Insurance * Guarantor: Jaelyn Cam TypeRelation to PatientDate of BirthPhone Billing AddressPersonal/WvfyznBvic1985 [address] [place] [address] * Guarantor: Gary Barajas TypeRelation to PatientDate of BirthPhone Billing AddressPersonal/RmsohhTbnkr56/[birth year]/[address] [address] Care Teams Team MemberRelationshipSpecialtyStart DateEnd Date Wicho Deluna PA-C [address] [address] PCP - GeneralPhysician Assistant05/13/18
[2025-10-19 21:04] VITALS: BP 154/78; PULSE 89; RESP 18; TEMP 36.8; O2SAT 97; BMI 31.9
--- NOTE | 2025-10-19 21:49 | ED.ASTHMA ---
HPI - Asthma General Date Seen: 10/19/25 Chief Complaint: Asthma Stated Complaint: asthma attack Time Seen by Provider: 10/19/25 21:10 Source: patient Mode of arrival: ambulatory Limitations: no limitations History of Present Illness HPI Narrative: Patient is a 40-year-old female with history of asthma presenting to the emergency department for shortness of breath. States that she had been having issues with shortness of breath and wheezing at her house for the past several days. States they have been doing some water damage to the house so it is torn up currently. States whenever she has the home she feels short of breath but gets better when she leaves. Today the shortness of breath started around 16:00 and was having some improvement with her home treatments. Symptoms were not Lassiter going away and she continued to wheeze though so she came to the emergency department. When she arrived to the emergency department she is already starting to feel better has she was no longer in her house. She states now she feels symptom free. She does not notice any more wheezing. Did not have any associated shortness of breath. States it felt just like her previous asthma attacks. Did not have any chest pain. No other concerns noted at this time. Related Data Home Medications ?Medication ?Instructions ?Recorded ?Confirmed albuterol 90 mcg/actuation aerosol mcg inhalation 05/26/23 inhaler fluticasone propionate 250 1 inh inhalation BID 05/26/23 05/26/23 mcg/actuation blister powder for inhalation (Flovent Diskus) venlafaxine 75 mg capsule,extended 75 mg PO DAILY 05/26/23 05/26/23 release 24 hr fluticasone furoate 200 inhalation 10/08/25 mcg-vilanterol 25 mcg/dose inhalation powder Previous Rx's ?Medication ?Instructions ?Recorded ipratropium 0.5 mg-albuterol 3 mg 3 ml inhalation Q6H PRN #90 mL 05/26/23 (2.5 mg base)/3 mL nebulization soln Allergies Allergy/AdvReac Type Severity Reaction Status Date / Time oxycodone Allergy Mild Rash Verified 10/19/25 21:07 Review of Systems Status of ROS Reports: 10 or more systems reviewed and unremarkable except as noted in History and below PFSH PFSH Social History Smoking Status: Never smoker Do you use any of these nicotine containing products: None Second hand tobacco smoke exposure: No How often do you have a drink containing alcohol: never How often do you have six or more drinks on one occasion: Never AUDIT-C Alcohol total score: 0 Non-prescribed substance use: denies use service: No Exam Narrative: Exam Narrative: Const: Well-nourished, Well-developed, in no distress Eyes: PERRL, no conjunctival injection, and symmetrical lids HENT: Atraumatic external nose and ears. Moist mucous membranes. Neck: Symmetric, trachea midline, No thyromegaly. CVS: RRR, No murmurs or gallops. Peripheral pulses 2+ and equal in all extremities RESP: Unlabored respiratory effort. Clear to auscultation bilaterally. GI: Nontender/Nondistended, No rebound or guarding. MSK:Extremities w/o deformity, Normal Active ROM Skin: Warm, Dry. No rashes or lesions. Neuro: Normal Muscle tone, No focal neurological deficits. Psych: Awake, Alert, & Oriented x3. Appropriate mood and affect. Const: Vital Signs, click to edit/add: Vital Signs - 24 hr 10/19/25 21:04 Temperature 98.3 F Pulse Rate [Right Pulse Oximeter] 89 Respiratory Rate 18 Blood Pressure [Ri ght Upper Arm] 154/78 H Pulse Oximetry 97 Oxygen Delivery Me thod Room Air Course Vital Signs Vital signs: Initial Vital Signs Temperature 98.3 F 10/19/25 21:04 Temperature Source Temporal Artery Scan 10/19/25 21:04 Pulse Rate 89 10/19/25 21:04 Respiratory Rate 18 10/19/25 21:04 Blood Pressure 154/78 H 10/19/25 21:04 Blood Pressure Mean 103 10/19/25 21:04 Blood Pressure Position Sitting 10/19/25 21:04 Pulse Oximetry 97 10/19/25 21:04 Oxygen Delivery Method Room Air 10/19/25 21:04 Vital Signs Temperature 98.3 F 10/19/25 21:04 Pulse Rate 89 10/19/25 21:04 Respiratory Rate 18 10/19/25 21:04 Blood Pressure 154/78 H 10/19/25 21:04 Pulse Oximetry 97 10/19/25 21:04 Oxygen Delivery Method Room Air 10/19/25 21:04 Temperature 98.3 F 10/19/25 21:04 Pulse Rate 89 10/19/25 21:04 Respiratory Rate 18 10/19/25 21:04 Blood Pressure 154/78 H 10/19/25 21:04 Pulse Oximetry 97 10/19/25 21:04 Oxygen Delivery Method Room Air 10/19/25 21:04 MDM - Asthma MDM Narrative Medical decision making narrative: Patient is a 40-year-old female presenting to emergency department for an asthma exacerbation. Symptoms have now resolved. His asthma exacerbation appears to be related to dust in her house. 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 States she now feels asymptomatic and feels good to go home but believes she needs steroids as they helped when she has asthma exacerbations. That sounds extremely reasonable and is exactly what I was planning on doing. We both agreed she does not need any further breathing treatments. Agreed not to do lab work or imaging as she states this has been a pretty clear asthma exacerbation. She is safe for discharge. She is agreeable to this plan. Prednisone prescribed via [facility]. Discharge Plan Discharge Clinical Impression: Asthma with acute exacerbation Qualifiers: Asthma severity: unspecified severity Asthma persistence: unspecified Qualified Code(s): J45.901 - Unspecified asthma with (acute) exacerbation Patient Disposition: Home, Self-Care Condition: Stable Instructions: Asthma (DC) Additional Instructions: Make sure to follow-up with your lining parts sewer/asthma specialist. To pickle cutter her prednisone the [facility] and take 2 pills daily for the next 5 days. Also recommend picking up your refill of albuterol. Return to emergency department for new or worsening symptoms. You could try using an air purifier at home at least in your room. Prescriptions: No Action albuterol 90 mcg/actuation aerosol inhalation Flovent Diskus 250 mcg/actuation blister with device 1 inh inhalation BID venlafaxine 75 mg capsule,extended release 24hr 75 mg PO DAILY ipratropium-albuterol 0.5 mg-3 mg(2.5 mg base)/3 mL solution for nebulization 3 ml inhalation Q6H PRNQty: 90 0RF fluticasone furoate-vilanterol 200-25 mcg/dose blister with device inhalation Follow Up/Referrals: Eliazar Newman MD [Primary Care Provider, Family Practice] Stand Alone Forms: Rank & Style Info Instructions
[2025-10-19 21:57] VITALS: PULSE 80; O2SAT 98
== END 2025-10-19 22:08 | disposition home or self-care (01) ==
PROVIDERS: Emergency Provider Student in an Organized Health Care Education/Training Program; PCP Family Medicine
DX: J45.901 Unspecified asthma with (acute) exacerbation (principal); Z79.51 Long term (current) use of inhaled steroids
CPT/HCPCS: 99283; 99284